=== PATIENT | male | born 1945 | race African-American/Black ===

== ENCOUNTER 2016-11-01 06:48 | Inpatient (IN) | payer OTHER, MEDICARE ==
[~2016-11-01] VITALS: Ht 188 cm; Wt 77.5 kg
[2016-11-01] VITALS (14 sets, daily range): BP systolic 102–187; BP diastolic 53–92; PULSE 48–55; RESP 17–20; TEMP 95.3–97.9; O2SAT 95–99
[~2016-11-01 06:48] MED LIST: AMLO5TAB22 PO; B12-1CHW CHEW; CALC667T PO; CHOL50006 PO; CITA-48 PO; DOXA1 PO; LASI80TA PO; LISI-363 PO; METO50TA PO; SIMV20 PO
--- NOTE | 2016-11-01 07:12 | PD ---
HPI . weakness Chief Complaint: General Weakness Time Seen by Provider: 07:00 Travel History International Travel<30 days: No Contact w/Intl Traveler<30days: No Traveled to known affect area: No History of Present Illness HPI Patient presents with chief complaint of weakness. He reports that he has been feeling poorly for about the last week or so. It has been acutely worse for the last 2 days. He has end-stage renal disease on dialysis. He went to dialysis this morning and they suggested that he come here for evaluation. Patient admits to a couple of syncopal episodes at home. He states that he feels very weak and fatigued. He is short of breath and has dyspnea on exertion. He reports taking aspirin for shoulder pain and is now passing blood per rectum. He states that he passed 3 large grossly positive stools yesterday. Patient was seen here in the recent past for hypoglycemia. He has had a very poor appetite and weight loss and has been having trouble maintaining his blood sugars. PFSH Past Medical History Arthritis: No Asthma: Yes Blood Disorders: No Anxiety: No Depression: No Heart Rhythm Problems: No Cancer: No Cardiovascular Problems: Yes (HTN) High Cholesterol: Yes Chemotherapy: No Chest Pain: No Congestive Heart Failure: Yes COPD: Yes Cerebrovascular Accident: No Diabetes: Yes Dialysis: Yes (hemo on m,w,f) Diminished Hearing: No Endocrine: Yes Gastrointestinal Disorders: Yes GERD: No Genitourinary: Yes Headaches: No Hepatitis: No Hiatal Hernia: No Hypertension: Yes Immune Disorder: No Implanted Vascular Access Dvce: No Kidney Stones: No Musculoskeletal: No Neurologic: No Psychiatric: No Reproductive: No Respiratory: Yes Migraines: No Radiation Therapy: No Renal Failure: Yes Seizures: No Sickle Cell Disease: No Sleep Apnea: No Thyroid Disease: No Ulcer: No ?: Not Past Surgical History AICD: No Arteriovenous Shunt: Yes Cardiac Surgery: No Ear Surgery: No Endocrine Surgery: No Eye Surgery: No Genitourinary Surgery: No Gynecologic Surgery: No Insulin Pump: No Joint Replacement: No Neurologic Surgery: No Oral Surgery: No Pacemaker: No Thoracic Surgery: No Other Surgery: Yes (fistula L arm) Social History Alcohol Use: No Tobacco Use: No Substance Use: No Allergies-Medications (Allergen,Severity, Reaction): Coded Allergies: No Known Allergies (Verified , 11/01/16) Reported Meds & Prescriptions Reported Meds & Active Scripts Active Review of Systems Except as stated in HPI: all other systems reviewed are Neg General / Constitutional: Positive: Weight Loss, Other (weakness and fatigue), No: Fever, Chills HENT: Positive: Lightheadedness Cardiovascular: Positive: Syncope, No: Chest Pain or Discomfort, Diaphoresis, Edema Respiratory: Positive: Shortness of Breath Gastrointestinal: Positive: Hematochezia, Loss of Appetite Neurologic: Positive: Weakness, Dizziness, Syncope Physical Exam Narrative GENERAL: Patient is lying on the stretcher with his eyes closed most the time. He does respond to verbal stimuli. He is very pale. SKIN: Warm and dry. HEAD: Atraumatic. Normocephalic. EYES: Pupils equal and round. Conjunctiva pale. ENT: No nasal bleeding or discharge. Mucous membranes pale and moist. NECK: Trachea midline. Neck is supple. No cervical lymphadenopathy. CARDIOVASCULAR: Regular rate and rhythm. Normal heart sounds. RESPIRATORY: No accessory muscle use. Breath sounds full and equal. GASTROINTESTINAL: Abdomen soft, non-tender, nondistended. MUSCULOSKELETAL: No obvious deformities. No edema. NEUROLOGICAL: Awake and alert. No obvious cranial nerve deficits. Motor grossly within normal limits. Normal speech. PSYCHIATRIC: Appropriate mood and affect; insight and judgment normal. Data Data Last Documented VS Vital Signs Date Time Temp Pulse Resp B/P Pulse Ox O2 Delivery O2 Flow Rate FiO2 11/01/16 07:00 48 18 97 Room Air 11/01/16 07:00 97.8 114/55 Orders Electrocardiogram (11/01/16 07:01) Complete Blood Count With Diff (11/01/16 07:01) Comprehensive Metabolic Panel (11/01/16 07:01) Magnesium (Mg) (11/01/16 07:01) Ckmb (Isoenzyme) Profile (11/01/16 07:01) Troponin I (11/01/16 07:01) Prothrombin Time / Inr (Pt) (11/01/16 07:01) Urinalysis - C+S If Indicated (11/01/16 07:01) Ecg Monitoring (11/01/16 07:01) Iv Access Insert/Monitor (11/01/16 07:01) Oximetry (11/01/16 07:01) Sodium Chloride 0.9% Flush (Ns Flush) (11/01/16 07:15) Type And Screen (11/01/16 07:11) CKMB (11/01/16 07:20) CKMB% (11/01/16 07:20) Labs Laboratory Tests Test 11/01/16 07:20 White Blood Count 4.5 TH/MM3 Red Blood Count 2.60 MIL/MM3 Hemoglobin 7.5 GM/DL Hematocrit 21.8 % Mean Corpuscular Volume 83.6 FL Mean Corpuscular Hemoglobin 29.0 PG Mean Corpuscular Hemoglobin 34.6 % Concent Red Cell Distribution Width 19.9 % Platelet Count 178 TH/MM3 Mean Platelet Volume 7.8 FL Neutrophils (%) (Auto) 83.1 % Lymphocytes (%) (Auto) 9.1 % Monocytes (%) (Auto) 6.9 % Eosinophils (%) (Auto) 0.3 % Basophils (%) (Auto) 0.6 % Neutrophils # (Auto) 3.7 TH/MM3 Lymphocytes # (Auto) 0.4 TH/MM3 Monocytes # (Auto) 0.3 TH/MM3 Eosinophils # (Auto) 0.0 TH/MM3 Basophils # (Auto) 0.0 TH/MM3 CBC Comment DIFF FINAL Differential Comment Prothrombin Time 11.5 SEC Prothromb Time International 1.0 RATIO Ratio Sodium Level 137 MEQ/L Potassium Level 4.8 MEQ/L Chloride Level 97 MEQ/L Carbon Dioxide Level 24.9 MEQ/L Anion Gap 15 MEQ/L Blood Urea Nitrogen 77 MG/DL Creatinine 11.97 MG/DL Estimat Glomerular Filtration 5 ML/MIN Rate Random Glucose 191 MG/DL Calcium Level 8.8 MG/DL Magnesium Level 2.1 MG/DL Total Bilirubin 0.3 MG/DL Aspartate Amino Transf 6 U/L (AST/SGOT) Alanine Aminotransferase 12 U/L (ALT/SGPT) Alkaline Phosphatase 51 U/L Total Creatine Kinase 153 U/L Creatine Kinase MB 4.9 NG/ML Troponin I 0.05 NG/ML Total Protein 6.8 GM/DL Albumin 3.2 GM/DL Blood Type O POSITIVE MDM Medical Decision Making Medical Screen Exam Complete: Yes Emergency Medical Condition: Yes Medical Record Reviewed: Yes Interpretation(s) EKG shows a sinus bradycardia and right bundle branch block Differential Diagnosis Differential diagnosis of weakness includes but is not limited to infection, CVA , electrolyte disturbance, renal failure, hypoglycemia, UTI, ACS, anemia Narrative Course This is a renal failure patient who presents with generalized weakness area. He reports a GI bleed which started yesterday. He reports several episodes of syncope. On exam, he is very pale. 8:18 AM His H&H is 7.5 and 21.8. White blood count is 4.5. INR is 1.0. Potassium is 4.8. Glucose is 191. The patient needs to be admitted for further evaluation of rectal bleeding with resultant anemia. HemaPrompt Point of Care Fecal Specimen Occult Blood: Positive (stool is grossly positive for blood. I do not see a hemorrhoid.) Diagnosis Primary Impression: Anemia Qualified Code: D64.9 - Anemia, unspecified type Additional Impressions: End stage renal disease on dialysis DM (diabetes mellitus) Qualified Code: E11.22 - Type 2 diabetes mellitus with chronic kidney disease on chronic dialysis, without long-term current use of insulin Rectal bleeding Admitting Information Admitting Physician Requests: Admit Condition: Stable Padmini Newberry MD Nov 01, 2016 07:12
[2016-11-01] MEDS ORDERED: SODIUM CHLORIDE 0.9% FLUSH 5 ML FLUSH IVF PRN ×2 (07:15→15:30)
[2016-11-01 07:44] LABS: AUTOMATED NEUTROPHIL # 3.7 TH/MM3 (1.8-7.7); BASOPHIL % 0.6 % (0.0-2.0); EOSINOPHIL % 0.3 % (0.0-4.0); HEMATOCRIT 21.8 % (39.0-51.0); HEMO FLAGS DIFF FINAL; LYMPH % 9.1 % (9.0-44.0); LYMPHOCYTE # 0.4 TH/MM3 (1.0-4.8); MEAN CELL VOLUME 83.6 FL (80.0-100.0); MEAN CORPUSCULAR HGB CONC 34.6 % (32.0-36.0); MONO % 6.9 % (0.0-8.0); NEUT % 83.1 % (16.0-70.0); PLATELET COUNT 178 TH/MM3 (150-450); RED CELL DISTRIBUTION WIDTH 19.9 % (11.6-17.2); WHITE BLOOD COUNT 4.5 TH/MM3 (4.0-11.0)
[2016-11-01 07:48] LABS: PROTHROMBIN TIME - PATIENT 11.5 SEC (9.8-11.6)
[2016-11-01 07:55] LABS: ANION GAP 15 MEQ/L (5-15)
[2016-11-01 08:00] LABS: ALKALINE PHOSPHATASE 51 U/L (45-117); ALT (GPT) 12 U/L (12-78); AST (GOT) 6 U/L (15-37); BICARBONATE 24.9 MEQ/L (21.0-32.0); BLOOD UREA NITROGEN 77 MG/DL (7-18); CHLORIDE 97 MEQ/L (98-107); CREATINE KINASE 153 U/L (39-308); GLOMERULAR FILTRATION RATE 5 ML/MIN (>89); MAGNESIUM 2.1 MG/DL (1.5-2.5); POTASSIUM 4.8 MEQ/L (3.5-5.1); SODIUM (NA) 137 MEQ/L (136-145); TOTAL BILIRUBIN ADULT 0.3 MG/DL (0.2-1.0)
[2016-11-01 08:14] LABS: CKMB 4.9 NG/ML (0.5-3.6)
[2016-11-01] MEDS ORDERED: LISI-515 PO (09:02)
[2016-11-01] MEDS ORDERED: AMLO5 PO (09:02)
[2016-11-01] MEDS ORDERED: D-50TAB PO (09:02)
[2016-11-01] MEDS ORDERED: FURO1TAB61 PO (09:02)
[2016-11-01] MEDS ORDERED: ZOCO20TA PO (09:02)
[2016-11-01] MEDS ORDERED: PHOS667C5 PO (09:02)
[2016-11-01] MEDS ORDERED: D 50CAP (09:02)
[2016-11-01] MEDS ORDERED: METO50TA PO (09:02)
[2016-11-01] MEDS ORDERED: DOXA4TAB3 PO (09:02)
[2016-11-01] MEDS ORDERED: BISACODYL 10 MG SUPP PR PRN (09:30)
[2016-11-01] MEDS ORDERED: SENNOSIDES 8.6 MG TAB PO PRN (09:30)
[2016-11-01] MEDS ORDERED: PROCHLORPERAZINE 25 MG SUPP PR PRN (09:30)
[2016-11-01] MEDS ORDERED: diphenhydrAMINE HCL 25 MG CAP PO ONE (09:30)
[2016-11-01] MEDS ORDERED: ACETAMINOPHEN 325 MG TAB PO ONE (09:30)
[2016-11-01] MEDS ORDERED: ONDANSETRON HCL 4 MG/2 ML VIAL IVP PRN (09:30)
[2016-11-01] MEDS ORDERED: SODIUM CHLORIDE 0.9% FLUSH 5 ML FLUSH FLUSH PRN (09:30)
[2016-11-01] MEDS ORDERED: SODIUM CHLOR 0.9% 250 ML INJ 250 ML IV ONE (09:30)
[2016-11-01] MEDS ORDERED: ACETAMINOPHEN 325 MG TAB PO PRN ×2 (09:30→15:30)
--- NOTE | 2016-11-01 09:33 | HHI.HP ---
[facility] Service [facility] Primary Care Physician Ena Klein Admission Diagnosis Diagnoses: Chief Complaint: weakness Travel History International Travel<30 Days: No Contact w/Intl Traveler <30 Da: No Traveled to Known Affected Are: No History of Present Illness Patient is a 71 yo male, with PMH of EDRD, HTN, DM presents with chief complaint of weakness. He reports that he has been feeling poorly for about the last week or so. It has been acutely worse for the last 2 days. He has end -stage renal disease on dialysis. He went to dialysis this morning and they suggested that he come here for evaluation. Patient admits to a couple of syncopal episodes at home. He states that he feels very weak and fatigued. He is short of breath and has dyspnea on exertion. He reports taking aspirin for shoulder pain and is now passing blood per rectum. He states that he passed 3 large grossly positive stools yesterday. Patient was seen here in the recent past for hypoglycemia. He has had a very poor appetite and weight loss and has been having trouble maintaining his blood sugars. Review of Systems Constitutional: DENIES: Fever, Chills, Change in appetite Endocrine: DENIES: Heat/cold intolerance Eyes: DENIES: Blurred vision, Eye pain Ears, nose, mouth, throat: DENIES: Tinnitus, Hearing loss, Vertigo, Nasal discharge, Oral lesions, Throat pain, Hoarseness, Ear Pain, Running Nose, Epistaxis, Sinus Pain, Toothache, Odynophagia Respiratory: DENIES: Apneas, Cough, Snoring, Wheezing, Hemoptysis, Sputum production, Shortness of breath Cardiovascular: DENIES: Chest pain, Palpitations, Syncope, Dyspnea on Exertion , PND, Lower Extremity Edema, Orthopnea, Claudication Gastrointestinal: DENIES: Abdominal pain, Black stools, Bloody stools, Constipation, Diarrhea, Nausea, Vomiting, Difficulty Swallowing, Anorexia Genitourinary: DENIES: Sexual dysfunction, Urinary frequency, Urinary incontinence, Urgency, Hematuria, Dysuria, Nocturia, Penile Discharge, Testicular Pain, Testicular Swelling Musculoskeletal: COMPLAINS OF: Joint pain Integumentary: DENIES: Rash Neurologic: DENIES: Abnormal gait, Headache, Localized weakness, Paresthesias, Seizures, Speech Problems, Tremor, Poor Balance Psychiatric: DENIES: Anxiety, Depression Past Family Social History Past Medical History ESRD on HD Hypertension COPD, diagnosed on recent PFTs Borderline diabetic in the past, s/p intentional 40 pound weight loss Past Surgical History Peritoneal dialysis catheter placement and removal; AV fistula placement Reported Medications Reported Meds & Active Scripts Active Reported Metoprolol Tartrate 50 Mg Tab 50 Mg PO DAILY Lasix (Furosemide) 80 Mg Tab 80 Mg PO DAILY Lisinopril 20 Mg Tab 20 Mg PO DAILY Zocor (Simvastatin) 20 Mg Tab 20 Mg PO HS Doxazosin (Doxazosin Mesylate) 4 Mg Tab 4 Mg PO DAILY D-5000 (Cholecalciferol) 5,000 Unit Tab Tab PO DAILY D 5000 (Cholecalciferol) 5,000 Unit Cap Phoslo (Calcium Acetate (Phosphate Binder)) 667 Mg Cap 1,334 Mg PO TID Norvasc (Amlodipine Besylate) 5 Mg Tab 5 Mg PO DAILY Allergies: Coded Allergies: No Known Allergies (Verified , 11/01/16) Family History Mother and grandmother with DM and kidney failure Social History Denies EtOH, tobacco use, illicit drug use. Physical Exam Vital Signs Vital Signs Date Time Temp Pulse Resp B/P Pulse Ox O2 Delivery O2 Flow Rate FiO2 11/01/16 09:00 48 18 131/53 98 Room Air 11/01/16 07:00 48 18 97 Room Air 11/01/16 07:00 18 97 Room Air 11/01/16 07:00 97.8 48 18 114/55 97 Room Air 11/01/16 06:50 97.9 53 18 114/55 Physical Exam GENERAL: This is a well-nourished, well-developed patient, in no apparent distress. SKIN: No rashes, ecchymoses or lesions. Cool and dry. HEAD: Atraumatic. Normocephalic. No temporal or scalp tenderness. EYES: Pupils equal round and reactive. Extraocular motions intact. No scleral icterus. No injection or drainage. ENT: Nose without bleeding, purulent drainage or septal hematoma. Throat without erythema, tonsillar hypertrophy or exudate. Uvula midline. Airway patent. NECK: Trachea midline. No JVD or lymphadenopathy. Supple, nontender, no meningeal signs. CARDIOVASCULAR: Regular rate and rhythm without murmurs, gallops, or rubs. RESPIRATORY: Clear to auscultation. Breath sounds equal bilaterally. No wheezes , rales, or rhonchi. GASTROINTESTINAL: Abdomen soft, non-tender, nondistended. No hepato-splenomegaly , or palpable masses. No guarding. MUSCULOSKELETAL: Extremities without clubbing, cyanosis, or edema. No joint tenderness, effusion, or edema noted. No calf tenderness. Negative Homans sign bilaterally. NEUROLOGICAL: Awake and alert. Cranial nerves II through XII intact. Motor and sensory grossly within normal limits. Five out of 5 muscle strength in all muscle groups. Normal speech. Laboratory Laboratory Tests Test 11/01/16 07:20 White Blood Count 4.5 Red Blood Count 2.60 Hemoglobin 7.5 Hematocrit 21.8 Mean Corpuscular Volume 83.6 Mean Corpuscular Hemoglobin 29.0 Mean Corpuscular Hemoglobin 34.6 Concent Red Cell Distribution Width 19.9 Platelet Count 178 Mean Platelet Volume 7.8 Neutrophils (%) (Auto) 83.1 Lymphocytes (%) (Auto) 9.1 Monocytes (%) (Auto) 6.9 Eosinophils (%) (Auto) 0.3 Basophils (%) (Auto) 0.6 Neutrophils # (Auto) 3.7 Lymphocytes # (Auto) 0.4 Monocytes # (Auto) 0.3 Eosinophils # (Auto) 0.0 Basophils # (Auto) 0.0 CBC Comment DIFF FINAL Differential Comment Prothrombin Time 11.5 Prothromb Time International 1.0 Ratio Sodium Level 137 Potassium Level 4.8 Chloride Level 97 Carbon Dioxide Level 24.9 Anion Gap 15 Blood Urea Nitrogen 77 Creatinine 11.97 Estimat Glomerular Filtration 5 Rate Random Glucose 191 Calcium Level 8.8 Magnesium Level 2.1 Total Bilirubin 0.3 Aspartate Amino Transf 6 (AST/SGOT) Alanine Aminotransferase 12 (ALT/SGPT) Alkaline Phosphatase 51 Total Creatine Kinase 153 Creatine Kinase MB 4.9 Troponin I 0.05 Total Protein 6.8 Albumin 3.2 Blood Type O POSITIVE Antibody Screen NEGATIVE Result Diagram: 11/01/1671911/01/16719 Assessment and Plan Assessment and Plan 70-year-old male with past medical history of ESRD on HD, COPD, and HTN presents with a 2 day history of no energy and shortness of breath GIB /rectal bleeding with symptomatic anemia: Type and cross, transfuse 2 U PRBC today. Monitor H/H q6 hrs. On Pantoprazole 40 mg IV bid. Consult GI specialist. Patient says says he is using more NSAIDs for pain lately. Pain meds per pain scale. Avoids NSAIDs Generalized weakness/physical deconditioning. Consult PT/OT ESRD on HD: Stable, no evidence of fluid overload. Nephrology consultation recommendations. Hypertension: Currently controlled. Continue patient's home BP medication regimen. Continue to monitor and adjust medications as needed. Diabetes mellitus type 2: Accuchecks, ISS COPD duonebs as need Chronic shoulder pain. Patient says says he is using more NSAIDs for pain lately. Pain meds per pain scale. Avoids NSAIDs Consult CM for DC plan DVT prophylaxis: SCDs, chemical ppx CI 2/2/ active bleeding Code Status full Discussed Condition With ER physician Physician Certification 2 Midnight Certification Type: Admission for Inpatient Services Order for Inpatient Services The services are ordered in accordance with Medicare regulations or non- Medicare payer requirements, as applicable. In the case of services not specified as inpatient-only, they are appropriately provided as inpatient services in accordance with the 2-midnight benchmark. Estimated LOS (days): 3 days is the estimated time the patient will need to remain in the hospital, assuming treatment plan goals are met and no additional complications. Post-Hospital Plan: Not yet determined Sarah Landrum MD Nov 01, 2016 09:33
[2016-11-01] MEDS: PANTOPRAZOLE SODIUM 40 MG VIAL IV PUSH SCH ×2 (09:57→20:50)
[2016-11-01] MEDS: CALCIUM ACETATE 667 MG CAP PO SCH ×2 (13:13→17:49)
--- NOTE | 2016-11-01 14:14 | EKG ---
Date Performed: 11/01/2016 Time Performed: 07:35:56 PTAGE: 71 years EKG: SINUS BRADYCARDIA RIGHT BUNDLE BRANCH BLOCK Compared to previous tracing, right bundle bran ch block is now present. ABNORMAL ECG PREVIOUS TRACING : 04/15/2016 20.20 DOCTOR: Elmer Ortiz Interpretating Date/Time 11/01/2016 14:12:44
[2016-11-01] MEDS ORDERED: SODIUM CHLOR 0.9% 1000 ML INJ 1,000 ML IV PRN ×3 (15:24→16:00)
[2016-11-01] MEDS ORDERED: GELATIN 12 MM/7 MM FOAM TOP PRN (15:30)
[2016-11-01] MEDS ORDERED: ONDANSETRON HCL 4 MG/2 ML VIAL IV PRN (15:30)
[2016-11-01] MEDS ORDERED: cloNIDine HCL 0.1 MG TAB PO PRN ×2 (15:30)
[2016-11-01] MEDS ORDERED: NITROGLYCERIN 0.4 MG SL 25 TABS/BTL SL PRN (15:30)
[2016-11-01] MEDS ORDERED: diphenhydrAMINE HCL 25 MG CAP PO PRN (15:30)
[2016-11-01] MEDS ORDERED: MANNITOL 12.5 GM/50 ML VIAL IV PRN (15:30)
[2016-11-01] MEDS ORDERED: ALBUMIN HUMAN 25% 25 GM/100 ML BAGP IV PRN (15:30)
[2016-11-01] MEDS ORDERED: EPOETIN ALFA 10,000 UNITS/ML VIAL IV PRN (15:30)
--- NOTE | 2016-11-01 15:47 | PD.CONS ---
HPI Service Nephrology Consult Requested By Dr. Landrum Reason for Consult ESRD on HD MWF Primary Care Physician Ena Klein History of Present Illness The patient is a 71 yo AA male who presented to this facility today at the urge of his dialysis nurse as he has been progressively weak and noted BRB DE with BMs. He did not have his regularly scheduled HD today. Says that he has had 2 previous episodes of rectal bleeding in the past that has been attributed to ASA use. He admits that he has been using large doses of Aspirin recently for L shoulder pain. Denies chest pain, abdominal pain, or SOB. (Gillian Figueroa) Review of Systems Constitutional: COMPLAINS OF: Fatigue, Dizziness Gastrointestinal: COMPLAINS OF: Bloody stools (Gillian Figueroa) Past Family Social History Allergies: Coded Allergies: No Known Allergies (Verified , 11/01/16) Past Medical History ESRD on HD Hypertension COPD CHF HLD Previous GI bleeding from ASA usage DM that is now diet controlled. Previously on oral medications, but stopped in 2013 as he intentionally lost ~80 lbs. Past Surgical History Hernia repair LUE AVF Reported Medications Active Reported Metoprolol Tartrate 50 Mg Tab 50 Mg PO DAILY Lasix (Furosemide) 80 Mg Tab 80 Mg PO DAILY Lisinopril 20 Mg Tab 20 Mg PO DAILY Zocor (Simvastatin) 20 Mg Tab 20 Mg PO HS Doxazosin (Doxazosin Mesylate) 4 Mg Tab 4 Mg PO DAILY D-5000 (Cholecalciferol) 5,000 Unit Tab Tab PO DAILY Phoslo (Calcium Acetate (Phosphate Binder)) 667 Mg Cap 1,334 Mg PO TID Norvasc (Amlodipine Besylate) 5 Mg Tab 5 Mg PO DAILY Active Ordered Medications Current Medications Medications (Trade) Dose Ordered Sig/Luis Route Start Time Stop Time Status Last Admin (NS 250 ml Inj) 250 ml @ 15 mls/hr ONCE ONCE IV 11/01/16 09:30 11/02/16 02:09 11/01/16 11:44 (NS Flush) 2 ml UNSCH PRN FLUSH 11/01/16 09:30 (NS Flush) 2 ml BID FLUSH 11/01/16 21:00 (Tylenol) 650 mg Q4H PRN PO 11/01/16 09:30 (Zofran Inj) 4 mg Q6H PRN IVP 11/01/16 09:30 (Compazine Supp) 25 mg Q12H PRN DE 11/01/16 09:30 (Dulcolax Supp) 10 mg DAILY PRN DE 11/01/16 09:30 (Senokot) 17.2 mg Q12H PRN PO 11/01/16 09:30 (Protonix Inj) 40 mg Q12H IV PUSH 11/01/16 10:00 11/01/16 09:57 (Phoslo) 1,334 mg TID PO 11/01/16 13:00 11/01/16 13:13 (Cardura) 4 mg DAILY PO 11/02/16 09:00 (Prinivil) 20 mg DAILY PO 11/02/16 09:00 (Pravachol) 40 mg HS PO 11/01/16 21:00 (Lopressor) 25 mg Q12HR PO 11/01/16 21:00 (Norvasc) 5 mg BID PO 11/01/16 21:00 Clonidine 0.1 mg 0.1 mg Q6H PRN PO 11/01/16 15:30 Sodium Chloride 1,000 ml @ 0 mls/hr Q0M PRN IV 11/01/16 15:24 Sodium Chloride 1,000 ml @ 200 mls/hr Q5H PRN IV 11/01/16 15:24 UNV (NS 1000 ml Inj) 1,000 ml @ 0 mls/hr Q0M PRN IV 11/01/16 15:24 UNV (Mannitol Inj) 12.5 gm UNSCH PRN IV 11/01/16 15:30 UNV (Albumin 25% Inj) 25 gm UNSCH PRN IV 11/01/16 15:30 UNV (NS Flush) 5 ml UNSCH PRN IVF 11/01/16 15:30 UNV (Zofran Inj) 4 mg UNSCH PRN IV 11/01/16 15:30 UNV (Tylenol) 650 mg UNSCH PRN PO 11/01/16 15:30 UNV (Benadryl) 25 mg UNSCH PRN PO 11/01/16 15:30 UNV (Nitrostat Sl) 0.4 mg UNSCH PRN SL 11/01/16 15:30 UNV (Catapres) 0.1 mg UNSCH PRN PO 11/01/16 15:30 UNV (Epogen Inj) 10,000 units UNSCH PRN IV 11/01/16 15:30 UNV (Gelfoam 12 Mm/7 Mm Top) 1 foam UNSCH PRN TOP 11/01/16 15:30 UNV Family History Sister with ESRD that was on HD Social History Denies tobacco use Denies ETOH or illicit drug use , 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) Physical Exam Vital Signs Vital Signs Date Time Temp Pulse Resp B/P Pulse Ox O2 Delivery O2 Flow Rate FiO2 11/01/16 14:56 95.6 55 20 187/83 97 11/01/16 14:00 95.3 55 20 174/77 96 11/01/16 13:48 97.8 50 17 102/59 98 Room Air 11/01/16 11:58 49 18 126/58 99 Room Air 11/01/16 10:45 97.9 49 18 121/60 99 Room Air 11/01/16 10:30 97.8 50 18 118/58 99 Room Air 11/01/16 10:05 95 21 11/01/16 09:00 48 18 131/53 98 Room Air 11/01/16 07:00 48 18 97 Room Air 11/01/16 07:00 18 97 Room Air 11/01/16 07:00 97.8 48 18 114/55 97 Room Air 11/01/16 06:50 97.9 53 18 114/55 Physical Exam GENERAL: NAD SKIN: Warm and dry. HEAD: Atraumatic. Normocephalic. EYES: Pupils equal and round. No scleral icterus. No injection or drainage. ENT: No nasal bleeding or discharge. Mucous membranes pink and moist. NECK: Trachea midline. No JVD. CARDIOVASCULAR: Regular rate and rhythm. RESPIRATORY: No accessory muscle use. Clear to auscultation. Breath sounds equal bilaterally. GASTROINTESTINAL: Abdomen soft, non-tender, nondistended. Hepatic and splenic margins not palpable. MUSCULOSKELETAL: Extremities without clubbing, cyanosis, or edema. No obvious deformities. NEUROLOGICAL: Awake and alert. No obvious cranial nerve deficits. Normal speech. PSYCHIATRIC: Appropriate mood and affect; insight and judgment normal. Laboratory Laboratory Tests Test 11/01/16 11/01/16 07:20 09:23 White Blood Count 4.5 Red Blood Count 2.60 Hemoglobin 7.5 Hematocrit 21.8 Mean Corpuscular Volume 83.6 Mean Corpuscular Hemoglobin 29.0 Mean Corpuscular Hemoglobin 34.6 Concent Red Cell Distribution Width 19.9 Platelet Count 178 Mean Platelet Volume 7.8 Neutrophils (%) (Auto) 83.1 Lymphocytes (%) (Auto) 9.1 Monocytes (%) (Auto) 6.9 Eosinophils (%) (Auto) 0.3 Basophils (%) (Auto) 0.6 Neutrophils # (Auto) 3.7 Lymphocytes # (Auto) 0.4 Monocytes # (Auto) 0.3 Eosinophils # (Auto) 0.0 Basophils # (Auto) 0.0 CBC Comment DIFF FINAL Differential Comment Prothrombin Time 11.5 Prothromb Time International 1.0 Ratio Sodium Level 137 Potassium Level 4.8 Chloride Level 97 Carbon Dioxide Level 24.9 Anion Gap 15 Blood Urea Nitrogen 77 Creatinine 11.97 Estimat Glomerular Filtration 5 Rate Random Glucose 191 Calcium Level 8.8 Magnesium Level 2.1 Total Bilirubin 0.3 Aspartate Amino Transf 6 (AST/SGOT) Alanine Aminotransferase 12 (ALT/SGPT) Alkaline Phosphatase 51 Total Creatine Kinase 153 Creatine Kinase MB 4.9 Troponin I 0.05 Total Protein 6.8 Albumin 3.2 Blood Type O POSITIVE O POSITIVE Antibody Screen NEGATIVE Crossmatch Leukocyte-Reduced Red Blood Cells Blood Bank Comment (Gillian Figueroa) Result Diagram: 11/01/16 0720 11/01/16 0720 Assessment and Plan Problem List: (1) End stage renal disease on dialysis Plan: Missed HD today, but no urgent need for session. Planned HD tomorrow as discussed with dialysis nurse. To resume MWF thereafter. Check PO4 levels, iPTH, Vit D Continue on PhosLo as per outpatient dose. Medications should be adjusted for ESRD. Avoid gadolinium. (2) HTN (hypertension) Plan: Continue on home medication regimen (3) Anemia Plan: Known GI bleed. GI has been consulted. Did discuss with the patient about excessive ASA use as he is at high risk of UGI bleeding with NSAIDs as a dialysis patient. Would recommend outpatient evaluation with an orthopedist to see if anything can be done about continued L shoulder pain. (Gillian Figueroa) Assessment and Plan The exam, history, and the medical decision-making described in the above note were completed with the assistance of the SANDEEP. I reviewed and agree with the findings presented. I attest that I had a [id number] encounter with the patient on the same day, and personally performed and documented my assessment and findings in the medical record. (Marilyn Brito MD) Problem Qualifiers (1) Anemia: Qualified Code: D64.9 - Anemia, unspecified type Gillian Figueroa Nov 01, 2016 15:47 Marilyn Brito MD Nov 01, 2016 16:07
[2016-11-01] MEDS ORDERED: RESP: ALBUTEROL 2.5 MG/IPRATROPIUM 0.5 MG NEB (PRN) NEB (16:00)
[2016-11-01] MEDS ORDERED: MORPHINE SULFATE 4 MG/ML INJ IV PRN (17:00)
[2016-11-01] MEDS ORDERED: NALOXONE HCL 0.4 MG/ML AMP IV PRN (17:00)
[2016-11-01] MEDS ORDERED: ACETAMINOPHEN/HYDROcodone 325 MG/5 MG TAB PO PRN (17:00)
[2016-11-01] MEDS: PRAVASTATIN SOD 40 MG TAB PO SCH (20:50)
[2016-11-01] MEDS: amLODIPine BESYLATE 5 MG TAB PO SCH (20:50)
[2016-11-01] MEDS: SODIUM CHLORIDE 0.9% FLUSH 5 ML FLUSH FLUSH SCH (20:50)
[2016-11-01] MEDS: METOPROLOL TARTRATE 25 MG TAB PO SCH (20:50)
[2016-11-01 21:55] LABS: BLOOD, URINE TRACE (NEG); COMMENT (UR) CULT NOT INDICATED; CULTURE IF INDICATED CULT NOT INDICATED; GLUCOSE,URINE TRACE mg/dL (NEG); KETONE, URINE NEG (NEG); NITRITE,URINE NEG (NEG); SQUAMOUS EPITHELIAL CELL URINE 1 /hpf (0-5); URINE COLOR LIGHT-YELLOW (YELLW/STRAW)
[2016-11-02] VITALS (10 sets, daily range): BP systolic 90–152; BP diastolic 51–114; PULSE 54–76; RESP 16–20; TEMP 95.6–98.1; O2SAT 91–98
[2016-11-02 03:24] LABS: AUTOMATED NEUTROPHIL # 4.2 TH/MM3 (1.8-7.7); BASOPHIL % 0.5 % (0.0-2.0); EOSINOPHIL # 0.1 TH/MM3 (0-0.4); EOSINOPHIL % 1.1 % (0.0-4.0); LYMPH % 8.8 % (9.0-44.0); LYMPHOCYTE # 0.4 TH/MM3 (1.0-4.8); MEAN CELL VOLUME 83.8 FL (80.0-100.0); MEAN CORPUSCULAR HEMOGLOBIN 28.3 PG (27.0-34.0); MEAN CORPUSCULAR HGB CONC 33.8 % (32.0-36.0); MONO % 8.6 % (0.0-8.0); PLATELET COUNT 134 TH/MM3 (150-450); RED BLOOD COUNT 2.05 MIL/MM3 (4.50-5.90); RED CELL DISTRIBUTION WIDTH 18.7 % (11.6-17.2); WHITE BLOOD COUNT 5.1 TH/MM3 (4.0-11.0)
[2016-11-02 03:26] LABS: HEMO FLAGS DIFF FINAL
[2016-11-02 03:34] LABS: HEMATOCRIT 17.2 % (39.0-51.0)
[2016-11-02 04:00] LABS: ANION GAP 15 MEQ/L (5-15); BICARBONATE 22.2 MEQ/L (21.0-32.0); BLOOD UREA NITROGEN 90 MG/DL (7-18); CHLORIDE 104 MEQ/L (98-107); GLOMERULAR FILTRATION RATE 5 ML/MIN (>89); POTASSIUM 5.1 MEQ/L (3.5-5.1); SODIUM (NA) 141 MEQ/L (136-145); TRANSFERRIN IRON PROFILE 119 MG/DL (200-360)
[2016-11-02] MEDS ORDERED: FUROSEMIDE 20 MG/2 ML VIAL IV SCH (04:15)
[2016-11-02] MEDS ORDERED: diphenhydrAMINE HCL 25 MG CAP PO PRN (04:15)
[2016-11-02] MEDS ORDERED: ACETAMINOPHEN 325 MG TAB PO PRN (04:15)
[2016-11-02] MEDS ORDERED: SODIUM CHLOR 0.9% 250 ML INJ 250 ML IV ONE (04:15)
[2016-11-02] MEDS: ACETAMINOPHEN/HYDROcodone 325 MG/10 MG TAB PO PRN ×2 (05:04→17:10)
[2016-11-02] MEDS: amLODIPine BESYLATE 5 MG TAB PO SCH ×2 (07:52→19:39)
[2016-11-02] MEDS: METOPROLOL TARTRATE 25 MG TAB PO SCH ×2 (07:52→19:39)
[2016-11-02] MEDS: LISINOPRIL 20 MG TAB PO SCH (07:53)
[2016-11-02] MEDS: CALCIUM ACETATE 667 MG CAP PO SCH ×3 (07:53→16:45)
[2016-11-02] MEDS: PANTOPRAZOLE SODIUM 40 MG VIAL IV PUSH SCH ×2 (07:55→19:41)
[2016-11-02] MEDS: SODIUM CHLORIDE 0.9% FLUSH 5 ML FLUSH FLUSH SCH ×2 (07:59→19:38)
[2016-11-02] MEDS: DOXAZOSIN MESYLATE 4 MG TAB PO SCH (07:59)
[2016-11-02] MEDS ORDERED: amLODIPine BESYLATE 5 MG TAB PO SCH (09:00)
--- NOTE | 2016-11-02 11:52 | HHI.PR ---
Subjective Remarks With significant drop in hgb, transfuse. Patient still with sob and severe weakness. He did have 3 bloody BM last night. No fever or chills. No chest pain, n/v. Denies fever or chills. He has pain in his joints, chronic pain, controlled by meds. Objective Vitals Vital Signs Date Time Temp Pulse Resp B/P Pulse Ox O2 Delivery O2 Flow Rate FiO2 11/02/16 08:00 97.6 57 18 105/61 95 11/02/16 04:00 95.6 54 18 90/51 98 11/02/16 00:00 97.2 55 18 130/68 98 11/01/16 20:24 54 11/01/16 20:00 96.8 55 18 158/78 95 11/01/16 15:15 97.0 54 18 168/92 11/01/16 15:00 97.6 54 167/78 11/01/16 14:56 95.6 55 20 187/83 97 11/01/16 14:00 95.3 55 20 174/77 96 11/01/16 13:48 97.8 50 17 102/59 98 Room Air 11/01/16 11:58 49 18 126/58 99 Room Air I/O 11/01/16 11/01/16 11/01/16 11/02/16 11/02/16 11/02/16 06:59 14:59 22:59 06:59 14:59 22:59 Intake Total 700 ml 520 ml 0 ml Output Total 30 ml 0 ml Balance 700 ml 490 ml 0 ml Intake Oral 200 ml 520 ml 0 ml IV Total 0 ml 0 ml 0 ml Packed Cells 500 ml Output Urine Total 30 ml 0 ml # Bowel Movements 0 1 2 Result Diagram: 11/02/16 03011/02/16 030 Objective Remarks GENERAL: This is a well-nourished, well-developed patient, in no apparent distress. SKIN: No rashes, ecchymoses or lesions. Cool and dry. HEAD: Atraumatic. Normocephalic. No temporal or scalp tenderness. EYES: Pupils equal round and reactive. Extraocular motions intact. No scleral icterus. No injection or drainage. ENT: Nose without bleeding, purulent drainage or septal hematoma. Throat without erythema, tonsillar hypertrophy or exudate. Uvula midline. Airway patent. NECK: Trachea midline. No JVD or lymphadenopathy. Supple, nontender, no meningeal signs. CARDIOVASCULAR: Regular rate and rhythm without murmurs, gallops, or rubs. RESPIRATORY: Clear to auscultation. Breath sounds equal bilaterally. No wheezes , rales, or rhonchi. GASTROINTESTINAL: Abdomen soft, non-tender, nondistended. No hepato-splenomegaly , or palpable masses. No guarding. MUSCULOSKELETAL: Extremities without clubbing, cyanosis, or edema. No joint tenderness, effusion, or edema noted. No calf tenderness. Negative Homans sign bilaterally. NEUROLOGICAL: Awake and alert. Cranial nerves II through XII intact. Motor and sensory grossly within normal limits. Five out of 5 muscle strength in all muscle groups. Normal speech. A/P Assessment and Plan 70-year-old male with past medical history of ESRD on HD, COPD, and HTN presents with a 2 day history of no energy and shortness of breath GIB /rectal bleeding with symptomatic anemia: Type and cross, transfuse 2 U PRBC on admission. Monitor H/H q6 hrs. On Pantoprazole 40 mg IV bid. Consult GI specialist. Patient says says he is using more NSAIDs for pain lately. Pain meds per pain scale. Avoids NSAIDs 11/02 with significant drop in HGB , 2 PRBC monitor H/H and transfuse if HGB < 7 or if symptomatic anemia and HGB < 9 GI service notified and plan for EGD/Colonoscopy today, keep NPO prep for procedure. Generalized weakness/physical deconditioning. Consult PT/OT ESRD on HD: Stable, no evidence of fluid overload. Nephrology consultation recommendations. Hypertension: Currently controlled. Continue patient's home BP medication regimen. Continue to monitor and adjust medications as needed. Diabetes mellitus type 2: Accuchecks, ISS COPD duonebs as need Chronic shoulder pain. Patient says says he is using more NSAIDs for pain lately. Pain meds per pain scale. Avoids NSAIDs Consult CM for DC plan DVT prophylaxis: SCDs, chemical ppx CI 2/2/ active bleeding Code Status full Discussed Condition With Patient, nurse Discharge Planning pending improvement, consultants clearance for DC Sarah Landrum MD Nov 02, 2016 11:52
[2016-11-02] MEDS ORDERED: BISACODYL EC 5 MG TABEC PO ONE (13:45)
[2016-11-02] MEDS ORDERED: PEG (High)/E-LYTE SOLN 4000 ML BTL PO ONE (13:45)
[2016-11-02 14:13] LABS: REVIEW FLAG FINAL
[2016-11-02] MEDS ORDERED: INSULIN HUMAN REGULAR 1,000 UNITS/10 ML VIAL SQ PRN (16:00)
[2016-11-02] MEDS ORDERED: METOPROLOL TARTRATE 25 MG TAB PO PRN (16:00)
[2016-11-02] MEDS: SODIUM CHLORID 0.9% 500 ML IV SCH (16:00)
--- NOTE | 2016-11-02 16:33 | MB ---
cc: CHESTER NAVARRO MD DATE OF CONSULTATION: 11/02/2016 REASON FOR CONSULTATION: GI bleeding. HISTORY OF PRESENT ILLNESS: This is a 71-year-old male patient with past medical history of diabetes mellitus, hypertension, end-stage kidney disease requiring hemodialysis three times a week who presented to the hospital with generalized weakness and fatigue for two days duration. The patient also noticed several episodes of fresh blood per rectum described as painless without any rectal or abdominal pain. No associated nausea or vomiting. No associated change in bowel habits. The patient had similar episode two years ago and was evaluated by his primary physician at [facility] and was told to avoid aspirin but no endoscopy evaluation was done for him The patient had a previous colonoscopy over ten years ago and it was reported as normal. The patient is a chronic user of aspirin for her shoulder pain. During hospitalization the patient was found to have significant anemia with a hemoglobin of 7.5, hematocrit 21.8 with normochromic normocytic picture suggestive of chronic anemia but she had a follow-up CBC today that showed a drop in hemoglobin to 5.8 and 17.2. GI consulted for further evaluation and possible endoscopy evaluation. REVIEW OF SYSTEMS: All ten-point review of systems elements were negative other than the ones mentioned in history of present illness. PAST MEDICAL HISTORY: 1. Hypertension. 2. Diabetes. 3. End-stage kidney disease. 4. COPD. PAST SURGICAL HISTORY: 1. Peritoneal dialysis catheter. 2. AV fistula placement. 3. Colonoscopy over ten years ago. MEDICATIONS: 1. Metoprolol. 2. Lasix. 3. Lisinopril. 4. Zocor. 5. Norvasc. 6. PhosLo. ALLERGIES: NO KNOWN DRUG ALLERGIES. FAMILY HISTORY: His mother and grandmother had diabetes and kidney failure. PSYCHOSOCIAL HISTORY: The patient denies alcohol, tobacco use or IV drug abuse. PHYSICAL EXAMINATION: GENERAL: On examination, the patient was found to be comfortable and not in distress or in pain. Received his hemodialysis this morning. He is hemodynamically stable with a blood pressure of 130/65, pulse of 52, respiratory rate of 16 and pulse oximetry of 98%. HEAD AND NECK: Atraumatic and normocephalic. Pupils equal and react to light. Supple neck. No lymphadenopathy. No thyromegaly. CHEST: Clear to auscultation bilaterally. No crackles or wheezes. HEART: Regular rate and rhythm. No murmurs. ABDOMEN: Abdomen soft and nontender. No hepatosplenomegaly. No palpable masses. EXTREMITIES: Normal pulses. No edema. NEUROLOGICAL EXAMINATION: Cranial nerves II through XII are grossly intact. SKIN: No rashes or hypopigmentation. LABS: Recent hemoglobin of 5.8, hematocrit 17.2, white count 5.1, platelet count of 157,000. PT and PTT within normal limits. Kidney function showed a creatinine of 12.9, BUN of 19. Electrolytes within normal limits otherwise. Liver function tests are normal. ASSESSMENT AND PLAN: This is a 71-year-old male patient with multiple medical problems including hypertension, diabetes and end-stage renal disease who presented with: 1. Painless rectal bleeding several episodes since admission. 2. Drop in his hemoglobin and hematocrit from a baseline chronic anemia. 3. Previous colonoscopic examination over ten years ago. 4. Chronic use of aspirin and other NSAIDs for shoulder pain. 5. History of weight loss, although intentional. RECOMMENDATIONS: 1. Will proceed with endoscopic evaluation including upper endoscopy and a colonoscopy. The risks, benefits, and possible complications were discussed with the patient and he agreed to proceed with that in the a.m. 2. Will keep him on a clear liquid diet, GoLYTELY, Dulcolax for bowel preparation. 3. Continue proton pump inhibitor for the time being. 4. Follow hemoglobin and hematocrit. 5. Blood transfusion as needed. Further recommendations to follow. Thank you for the consult. Chester GOMES/ARMIDA /1:35 PM /4:22 PM
--- NOTE | 2016-11-02 16:40 | HHI.NPPN ---
Subjective History of Present Illness The patient is a 71 yo AA male who presented to this facility today at the urge of his dialysis nurse as he has been progressively weak and noted BRB NH with BMs. He did not have his regularly scheduled HD today. Says that he has had 2 previous episodes of rectal bleeding in the past that has been attributed to ASA use. He admits that he has been using large doses of Aspirin recently for L shoulder pain. Denies chest pain, abdominal pain, or SOB. Interval History Noted GI consultation in progress. Patient still having red bowel movements. Review of Systems Gastrointestinal Gastrointestinal: Blood/Tarry Stools Objective Data Data 11/01/16 11/02/16 18:59 06:59 Intake Total 700 ml 520 ml Output Total 30 ml Balance 700 ml 490 ml Intake Oral 200 ml 520 ml IV Total 0 ml 0 ml Packed Cells 500 ml Output Urine Total 30 ml # Bowel Movements 0 3 Vital Signs Date Time Temp Pulse Resp B/P Pulse Ox O2 Delivery O2 Flow Rate FiO2 11/02/16 16:00 97.6 68 17 128/70 94 11/02/16 12:42 97.7 72 18 144/69 93 11/02/16 08:00 97.6 57 18 105/61 95 11/02/16 04:00 95.6 54 18 90/51 98 11/02/16 00:00 97.2 55 18 130/68 98 11/01/16 20:24 54 11/01/16 20:00 96.8 55 18 158/78 95 -: 11/02/16 1349 11/02/16 0309 Physical Exam General Appearance: No Acute Distress, Comfortable Eyes Eye Exam: Sclera White Pulmonary Resp Exam: Clear Bilaterally, Breath Sounds Equal, No Distress Cardiology CV Exam: Regular, Normal Sinus Rhythm Gastrointestinal/Abdomen GI Exam: Soft, Non-Tender Integumentary Skin Exam: Clear, Warm, Dry Extremeties Extremities Exam: No Edema Neurologic Neuro Exam: Alert, Awake Assessment/Plan Discussed Condition With: Patient Problem List: (1) End stage renal disease on dialysis Plan: Patient is be stable post hemodialysis.. To resume MWF thereafter. Dr. Watkins his outpatient gore seamer will be resuming patient's care this Friday Medications should be adjusted for ESRD. Avoid gadolinium. (2) HTN (hypertension) Plan: Continue on home medication regimen (3) Anemia Plan: Known GI bleed. GI has been consulted. Did discuss with the patient about excessive ASA use as he is at high risk of UGI bleeding with NSAIDs as a dialysis patient. Would recommend outpatient evaluation with an orthopedist to see if anything can be done about continued L shoulder pain. Problem Qualifiers (1) Anemia: Qualified Code: D64.9 - Anemia, unspecified type Marilyn Brito MD Nov 02, 2016 16:40
[2016-11-02] MEDS: PRAVASTATIN SOD 40 MG TAB PO SCH (19:39)
[2016-11-02] MEDS: LACTATED RINGER'S 1000 ML IV SCH (19:41)
[2016-11-03] VITALS (7 sets, daily range): BP systolic 131–181; BP diastolic 59–85; PULSE 58–89; RESP 18–20; TEMP 97.3–98.6; O2SAT 93–95
[2016-11-03] MEDS: ACETAMINOPHEN/HYDROcodone 325 MG/10 MG TAB PO PRN ×2 (05:54→16:40)
[2016-11-03 07:05] LABS: AUTOMATED NEUTROPHIL # 4.3 TH/MM3 (1.8-7.7); BASOPHIL % 0.4 % (0.0-2.0); EOSINOPHIL # 0.1 TH/MM3 (0-0.4); EOSINOPHIL % 1.4 % (0.0-4.0); HEMATOCRIT 25.8 % (39.0-51.0); HEMO FLAGS DIFF FINAL; LYMPH % 13.2 % (9.0-44.0); LYMPHOCYTE # 0.8 TH/MM3 (1.0-4.8); MEAN CELL VOLUME 82.2 FL (80.0-100.0); MEAN CORPUSCULAR HEMOGLOBIN 28.7 PG (27.0-34.0); MEAN CORPUSCULAR HGB CONC 34.9 % (32.0-36.0); MONO % 12.1 % (0.0-8.0); NEUT % 72.9 % (16.0-70.0); PLATELET COUNT 109 TH/MM3 (150-450); RED BLOOD COUNT 3.14 MIL/MM3 (4.50-5.90); RED CELL DISTRIBUTION WIDTH 16.1 % (11.6-17.2); WHITE BLOOD COUNT 5.9 TH/MM3 (4.0-11.0)
[2016-11-03 07:17] LABS: BICARBONATE 29.1 MEQ/L (21.0-32.0); POTASSIUM 4.2 MEQ/L (3.5-5.1)
[2016-11-03] MEDS: METOPROLOL TARTRATE 25 MG TAB PO SCH ×2 (08:13→19:51)
[2016-11-03] MEDS: CALCIUM ACETATE 667 MG CAP PO SCH ×3 (08:14→16:40)
[2016-11-03] MEDS: DOXAZOSIN MESYLATE 4 MG TAB PO SCH (08:14)
[2016-11-03] MEDS: amLODIPine BESYLATE 5 MG TAB PO SCH ×2 (08:14→19:51)
[2016-11-03] MEDS: LISINOPRIL 20 MG TAB PO SCH (08:14)
[2016-11-03] MEDS: SODIUM CHLORID 0.9% 500 ML IV SCH (08:40)
[2016-11-03] MEDS: PANTOPRAZOLE SODIUM 40 MG VIAL IV PUSH SCH ×2 (11:26→19:56)
--- NOTE | 2016-11-03 12:28 | HHI.PR ---
Subjective Remarks Says he feels improved today. Has 2 bloody BM since yesterday. No chest pain. Less sob and feesl he is getting back strength. No fever or chills. No n/v/d/c. Objective Vitals Vital Signs Date Time Temp Pulse Resp B/P Pulse Ox O2 Delivery O2 Flow Rate FiO2 11/03/16 11:31 97.9 62 18 158/78 95 11/03/16 08:00 98.5 66 19 175/80 95 11/03/16 04:00 97.7 62 18 131/59 95 11/03/16 00:00 98.6 65 20 158/81 93 11/02/16 21:44 97.6 73 20 144/69 93 11/02/16 20:00 71 11/02/16 20:00 97.7 72 20 149/114 95 11/02/16 19:27 91 21 11/02/16 17:07 98.1 76 16 149/80 94 11/02/16 16:45 97.9 74 17 152/66 96 11/02/16 16:00 97.6 68 17 128/70 94 11/02/16 12:42 97.7 72 18 144/69 93 I/O 11/02/16 11/02/16 11/02/16 11/03/16 11/03/16 11/03/16 07:00 15:00 23:00 07:00 15:00 23:00 Intake Total 0 ml 0 ml 970 ml 260 ml 120 ml Output Total 0 ml 3600 ml 0 ml 0 ml Balance 0 ml -3600 ml 970 ml 260 ml 120 ml Intake Oral 0 ml 0 ml 720 ml 0 ml 120 ml IV Total 0 ml 0 ml 10 ml Packed Cells 250 ml 250 ml Output Urine Total 0 ml 100 ml 0 ml 0 ml Hemodialysis 3500 ml # Bowel Movements 2 Result Diagram: 11/03/1646 11/03/1646 Objective Remarks GENERAL: This is a well-nourished, well-developed patient, in no apparent distress. SKIN: No rashes, ecchymoses or lesions. Cool and dry. HEAD: Atraumatic. Normocephalic. No temporal or scalp tenderness. EYES: Pupils equal round and reactive. Extraocular motions intact. No scleral icterus. No injection or drainage. ENT: Nose without bleeding, purulent drainage or septal hematoma. Throat without erythema, tonsillar hypertrophy or exudate. Uvula midline. Airway patent. NECK: Trachea midline. No JVD or lymphadenopathy. Supple, nontender, no meningeal signs. CARDIOVASCULAR: Regular rate and rhythm without murmurs, gallops, or rubs. RESPIRATORY: Clear to auscultation. Breath sounds equal bilaterally. No wheezes , rales, or rhonchi. GASTROINTESTINAL: Abdomen soft, non-tender, nondistended. No hepato-splenomegaly , or palpable masses. No guarding. MUSCULOSKELETAL: Extremities without clubbing, cyanosis, or edema. No joint tenderness, effusion, or edema noted. No calf tenderness. Negative Homans sign bilaterally. NEUROLOGICAL: Awake and alert. Cranial nerves II through XII intact. Motor and sensory grossly within normal limits. Five out of 5 muscle strength in all muscle groups. Normal speech. A/P Assessment and Plan 70-year-old male with past medical history of ESRD on HD, COPD, and HTN presents with a 2 day history of no energy and shortness of breath GIB /rectal bleeding with symptomatic anemia: Type and cross, transfuse 2 U PRBC on admission. Monitor H/H q6 hrs. On Pantoprazole 40 mg IV bid. Consult GI specialist. Patient says says he is using more NSAIDs for pain lately. Pain meds per pain scale. Avoids NSAIDs 11/02 with significant drop in HGB , 2 PRBC monitor H/H and transfuse if HGB < 7 or if symptomatic anemia and HGB < 9 Patient still with SOB and wekness after blood transfusion, transfused 2 U PRBC last nioght. He feels much better today 11/03/16 GI service notified and plan for EGD/Colonoscopy today, keep NPO preped for procedure. Generalized weakness/physical deconditioning likely 2/2 anemia. Consult PT/OT ESRD on HD: Stable, no evidence of fluid overload. Nephrology consultation recommendations. Hypertension: Currently controlled. Continue patient's home BP medication regimen. Continue to monitor and adjust medications as needed. Diabetes mellitus type 2: Accuchecks, ISS COPD duonebs as need Chronic shoulder pain. Patient says says he is using more NSAIDs for pain lately. Pain meds per pain scale. Avoids NSAIDs Consult CM for DC plan DVT prophylaxis: SCDs, chemical ppx CI 2/2/ active bleeding Code Status full Discussed Condition With Patient, nurse DC when improved and cleared by consultants Sarah Landrum MD Nov 03, 2016 12:28
[2016-11-03] MEDS ORDERED: PROPOFOL 200 MG/20 ML AMP IV ONE (13:43)
[2016-11-03] MEDS ORDERED: DO NOT ADM ANY ANTICOAGULANT DRUGS XX PRN (14:23)
[2016-11-03] MEDS: LACTATED RINGER'S 1000 ML IV SCH (16:00)
[2016-11-03] MEDS: SODIUM CHLORIDE 0.9% FLUSH 5 ML FLUSH FLUSH SCH ×2 (16:40→19:50)
[2016-11-03] MEDS: PRAVASTATIN SOD 40 MG TAB PO SCH (19:50)
--- NOTE | 2016-11-03 20:43 | HHI.PR ---
Subjective Remarks Patient says he feels improved. SOB and weakness improved. He did have 2 bloody BM yesterday none today. Says is was less blood coming out. Denies cp, sob, n/v /d/c. Objective Vitals Vital Signs Date Time Temp Pulse Resp B/P Pulse Ox O2 Delivery O2 Flow Rate FiO2 11/03/16 17:33 Nasal Cannula 2.00 11/03/16 16:00 97.4 58 18 181/85 95 11/03/16 14:38 97.5 53 14 171/84 100 Nasal Cannula 2 11/03/16 14:30 54 14 164/82 99 Nasal Cannula 2 11/03/16 14:20 97.7 58 14 153/81 100 Nasal Cannula 2 11/03/16 11:31 97.9 62 18 158/78 95 11/03/16 08:00 98.5 66 19 175/80 95 11/03/16 04:00 97.7 62 18 131/59 95 11/03/16 00:00 98.6 65 20 158/81 93 11/02/16 21:44 97.6 73 20 144/69 93 I/O 11/02/16 11/02/16 11/02/16 11/03/16 11/03/16 11/03/16 07:00 15:00 23:00 07:00 15:00 23:00 Intake Total 0 ml 0 ml 970 ml 260 ml 430 ml 240 ml Output Total 0 ml 3600 ml 0 ml 0 ml 450 ml Balance 0 ml -3600 ml 970 ml 260 ml -20 ml 240 ml Intake Oral 0 ml 0 ml 720 ml 0 ml 120 ml 240 ml IV Total 0 ml 0 ml 10 ml 10 ml 0 ml Packed Cells 250 ml 250 ml Other 300 ml Output Urine Total 0 ml 100 ml 0 ml 0 ml 400 ml Hemodialysis 3500 ml Estimated Blood Loss 50 ml # Voids 0 # Bowel Movements 2 0 Result Diagram: 11/03/1646 11/03/1646 Objective Remarks GENERAL: This is a well-nourished, well-developed patient, in no apparent distress. SKIN: No rashes, ecchymoses or lesions. Cool and dry. HEAD: Atraumatic. Normocephalic. No temporal or scalp tenderness. EYES: Pupils equal round and reactive. Extraocular motions intact. No scleral icterus. No injection or drainage. ENT: Nose without bleeding, purulent drainage or septal hematoma. Throat without erythema, tonsillar hypertrophy or exudate. Uvula midline. Airway patent. NECK: Trachea midline. No JVD or lymphadenopathy. Supple, nontender, no meningeal signs. CARDIOVASCULAR: Regular rate and rhythm without murmurs, gallops, or rubs. RESPIRATORY: Clear to auscultation. Breath sounds equal bilaterally. No wheezes , rales, or rhonchi. GASTROINTESTINAL: Abdomen soft, non-tender, nondistended. No hepato-splenomegaly , or palpable masses. No guarding. MUSCULOSKELETAL: Extremities without clubbing, cyanosis, or edema. No joint tenderness, effusion, or edema noted. No calf tenderness. Negative Homans sign bilaterally. NEUROLOGICAL: Awake and alert. Cranial nerves II through XII intact. Motor and sensory grossly within normal limits. Five out of 5 muscle strength in all muscle groups. Normal speech. A/P Assessment and Plan 70-year-old male with past medical history of ESRD on HD, COPD, and HTN presents with a 2 day history of no energy and shortness of breath GIB /rectal bleeding with symptomatic anemia: Type and cross, transfuse 2 U PRBC on admission. Monitor H/H q6 hrs. On Pantoprazole 40 mg IV bid. Consult GI specialist. Patient says says he is using more NSAIDs for pain lately. Pain meds per pain scale. Avoids NSAIDs 11/02 with significant drop in HGB , 2 PRBC monitor H/H and transfuse if HGB < 7 or if symptomatic anemia and HGB < 9 Patient still with SOB and weakness after blood transfusion, transfused 2 U PRBC last night. He feels much better today 11/03/16 GI service notified and plan for EGD/Colonoscopy today, keep NPO preped for procedure. Generalized weakness/physical deconditioning likely 2/2 anemia. Consult PT/OT ESRD on HD: Stable, no evidence of fluid overload. Nephrology consultation recommendations. Hypertension: Currently controlled. Continue patient's home BP medication regimen. Continue to monitor and adjust medications as needed. Diabetes mellitus type 2: Accuchecks, ISS COPD duonebs as need Chronic shoulder pain. Patient says says he is using more NSAIDs for pain lately. Pain meds per pain scale. Avoids NSAIDs Consult CM for DC plan DVT prophylaxis: SCDs, chemical ppx CI 2/2/ active bleeding Code Status full Discussed Condition With Patient, nurse DC when improved and cleared by consultants Sarah Landrum MD Nov 03, 2016 20:43
[2016-11-04] VITALS: BP 164/78; PULSE 56; RESP 18; TEMP 97.8; O2SAT 94
[2016-11-04 04:00] VITALS: BP 172/81; PULSE 57; RESP 18; TEMP 97.8; O2SAT 94
[2016-11-04] MEDS: ACETAMINOPHEN/HYDROcodone 325 MG/10 MG TAB PO PRN (05:42)
[2016-11-04 05:44] LABS: AUTOMATED NEUTROPHIL # 4.4 TH/MM3 (1.8-7.7); BASOPHIL % 0.6 % (0.0-2.0); EOSINOPHIL # 0.1 TH/MM3 (0-0.4); EOSINOPHIL % 1.5 % (0.0-4.0); HEMATOCRIT 27.3 % (39.0-51.0); HEMO FLAGS DIFF FINAL; LYMPH % 11.9 % (9.0-44.0); LYMPHOCYTE # 0.7 TH/MM3 (1.0-4.8); MEAN CELL VOLUME 83.5 FL (80.0-100.0); MEAN CORPUSCULAR HEMOGLOBIN 28.5 PG (27.0-34.0); MEAN CORPUSCULAR HGB CONC 34.2 % (32.0-36.0); MONO % 12.7 % (0.0-8.0); NEUT % 73.3 % (16.0-70.0); PLATELET COUNT 113 TH/MM3 (150-450); RED BLOOD COUNT 3.27 MIL/MM3 (4.50-5.90); RED CELL DISTRIBUTION WIDTH 16.3 % (11.6-17.2)
[2016-11-04 06:16] LABS: POTASSIUM 4.4 MEQ/L (3.5-5.1)
[2016-11-04 08:00] VITALS: BP 170/81; PULSE 58; RESP 20; TEMP 98.4; O2SAT 95
[2016-11-04] MEDS: DOXAZOSIN MESYLATE 4 MG TAB PO SCH (08:06)
[2016-11-04] MEDS: amLODIPine BESYLATE 5 MG TAB PO SCH (08:06)
[2016-11-04] MEDS: LISINOPRIL 20 MG TAB PO SCH (08:06)
[2016-11-04] MEDS: METOPROLOL TARTRATE 25 MG TAB PO SCH (08:06)
[2016-11-04] MEDS: CALCIUM ACETATE 667 MG CAP PO SCH ×3 (08:06→18:00)
[2016-11-04] MEDS: SODIUM CHLORIDE 0.9% FLUSH 5 ML FLUSH FLUSH SCH (08:08)
[2016-11-04] MEDS: PANTOPRAZOLE SODIUM 40 MG VIAL IV PUSH SCH (08:10)
[2016-11-04 08:53] VITALS: O2SAT 95
--- NOTE | 2016-11-04 09:38 | HHI.PR ---
Subjective Remarks He had 2 BM s yesterday less bloody. No chest pain. SOB improving. With weakness improving. Denies fever or chills. No BM today. Objective Vitals Vital Signs Date Time Temp Pulse Resp B/P Pulse Ox O2 Delivery O2 Flow Rate FiO2 11/04/16 08:53 95 21 11/04/16 08:00 98.4 58 20 170/81 95 11/04/16 04:00 97.8 57 18 172/81 94 11/04/16 00:00 97.8 56 18 164/78 94 11/03/16 21:36 59 11/03/16 20:00 97.3 89 18 172/82 95 11/03/16 17:33 Nasal Cannula 2.00 11/03/16 16:00 97.4 58 18 181/85 95 11/03/16 14:38 97.5 53 14 171/84 100 Nasal Cannula 2 11/03/16 14:30 54 14 164/82 99 Nasal Cannula 2 11/03/16 14:20 97.7 58 14 153/81 100 Nasal Cannula 2 11/03/16 11:31 97.9 62 18 158/78 95 I/O 11/03/16 11/03/16 11/03/16 11/04/16 11/04/16 11/04/16 06:59 14:59 22:59 06:59 14:59 22:59 Intake Total 260 ml 430 ml 360 ml 0 ml Output Total 0 ml 450 ml 200 ml Balance 260 ml -20 ml 160 ml 0 ml Intake Oral 0 ml 120 ml 360 ml 0 ml IV Total 10 ml 10 ml 0 ml 0 ml Packed Cells 250 ml Other 300 ml Output Urine Total 0 ml 400 ml 200 ml Estimated Blood Loss 50 ml # Voids 0 0 # Bowel Movements 0 0 0 Result Diagram: 11/04/1651611/04/16516 Objective Remarks GENERAL: This is a well-nourished, well-developed patient, in no apparent distress. SKIN: No rashes, ecchymoses or lesions. Cool and dry. HEAD: Atraumatic. Normocephalic. No temporal or scalp tenderness. EYES: Pupils equal round and reactive. Extraocular motions intact. No scleral icterus. No injection or drainage. ENT: Nose without bleeding, purulent drainage or septal hematoma. Throat without erythema, tonsillar hypertrophy or exudate. Uvula midline. Airway patent. NECK: Trachea midline. No JVD or lymphadenopathy. Supple, nontender, no meningeal signs. CARDIOVASCULAR: Regular rate and rhythm without murmurs, gallops, or rubs. RESPIRATORY: Clear to auscultation. Breath sounds equal bilaterally. No wheezes , rales, or rhonchi. GASTROINTESTINAL: Abdomen soft, non-tender, nondistended. No hepato-splenomegaly , or palpable masses. No guarding. MUSCULOSKELETAL: Extremities without clubbing, cyanosis, or edema. No joint tenderness, effusion, or edema noted. No calf tenderness. Negative Homans sign bilaterally. NEUROLOGICAL: Awake and alert. Cranial nerves II through XII intact. Motor and sensory grossly within normal limits. Five out of 5 muscle strength in all muscle groups. Normal speech. A/P Assessment and Plan 70-year-old male with past medical history of ESRD on HD, COPD, and HTN presents with a 2 day history of no energy and shortness of breath GIB /rectal bleeding with symptomatic anemia: Type and cross, transfuse 2 U PRBC on admission. Monitor H/H q6 hrs. On Pantoprazole 40 mg IV bid. Consult GI specialist. Patient says says he is using more NSAIDs for pain lately. Pain meds per pain scale. Avoids NSAIDs 11/02 with significant drop in HGB , 2 PRBC monitor H/H and transfuse if HGB < 7 or if symptomatic anemia and HGB < 9 Patient still with SOB and weakness after blood transfusion, transfused 2 U PRBC last night. He feels much better today 11/03/16 s/p EGD/Colonoscopy patient with diverticular bleed per GI and also with gastritis. Generalized weakness/physical deconditioning likely 2/2 anemia. Consult PT/OT ESRD on HD: Stable, no evidence of fluid overload. Nephrology consultation recommendations. Hypertension: Currently controlled. Continue patient's home BP medication regimen. Continue to monitor and adjust medications as needed. Diabetes mellitus type 2: Accuchecks, ISS COPD duonebs as need Chronic shoulder pain. Patient says says he is using more NSAIDs for pain lately. Pain meds per pain scale. Avoids NSAIDs Consult CM for DC plan DVT prophylaxis: SCDs, chemical ppx CI 2/2/ active bleeding Code Status full Discussed Condition With Patient, nurse DC poss later today Sarah Landrum MD Nov 04, 2016 09:38
[2016-11-04] MEDS ORDERED: METO25TA3 PO (09:45)
[2016-11-04] MEDS ORDERED: NORC5TAB PO (09:45)
--- NOTE | 2016-11-04 09:46 | HHI.DS ---
Discharge Summary Admission Date Nov 01, 2016 at 09:34 Discharge Date: Nov 04, 2016 Admitting Diagnosis rectal bleeding (1) Rectal bleeding ICD Code: K62.5 Diagnosis: Principal (2) HTN (hypertension) ICD Code: I10 Diagnosis: Secondary (3) Anemia ICD Code: D64.9 Diagnosis: Principal (4) ESRD on dialysis ICD Code: N18.6 Diagnosis: Secondary (5) SOB (shortness of breath) ICD Code: R06.02 Diagnosis: Principal (6) DM (diabetes mellitus) ICD Code: E11.9 Diagnosis: Secondary Procedures EGD/ colonoscopy Brief History - From Admission Patient is a 71 yo male, with PMH of EDRD, HTN, DM presents with chief complaint of weakness. He reports that he has been feeling poorly for about the last week or so. It has been acutely worse for the last 2 days. He has end -stage renal disease on dialysis. He went to dialysis this morning and they suggested that he come here for evaluation. Patient admits to a couple of syncopal episodes at home. He states that he feels very weak and fatigued. He is short of breath and has dyspnea on exertion. He reports taking aspirin for shoulder pain and is now passing blood per rectum. He states that he passed 3 large grossly positive stools yesterday. Patient was seen here in the recent past for hypoglycemia. He has had a very poor appetite and weight loss and has been having trouble maintaining his blood sugars. CBC/BMP: 11/04/16 0517 11/04/16 0517 Significant Findings Laboratory Tests Test 11/01/16 11/01/16 11/02/16 11/02/16 21:30 23:04 03:09 13:49 Urine Protein 100 mg/dL (NEG-TRACE) Urine Occult Blood TRACE (NEG) Parathyroid Hormone (Intact) 173.8 PG/ML (12.4-76.8) Red Blood Count 2.05 MIL/MM3 (4.50-5.90) Hemoglobin 5.8 GM/DL 7.2 GM/DL (13.0-17.0) (13.0-17.0) Hematocrit 17.2 % 21.0 % (39.0-51.0) (39.0-51.0) Red Cell Distribution Width 18.7 % (11.6-17.2) Platelet Count 134 TH/MM3 (150-450) Neutrophils (%) (Auto) 81.0 % (16.0-70.0) Lymphocytes (%) (Auto) 8.8 % (9.0-44.0) Monocytes (%) (Auto) 8.6 % (0.0-8.0) Lymphocytes # (Auto) 0.4 TH/MM3 (1.0-4.8) Blood Urea Nitrogen 90 MG/DL (7-18) Creatinine 12.90 MG/DL (0.60-1.30) Estimat Glomerular Filtration 5 ML/MIN (>89) Rate Random Glucose 113 MG/DL (74-106) Total Iron Binding Capacity 167 MCG/DL (250-450) Percent Iron Saturation 66.6 % (20-50) Test 11/03/16 11/04/16 05:46 05:17 Red Blood Count 3.14 MIL/MM3 3.27 MIL/MM3 (4.50-5.90) (4.50-5.90) Hemoglobin 9.0 GM/DL 9.3 GM/DL (13.0-17.0) (13.0-17.0) Hematocrit 25.8 % 27.3 % (39.0-51.0) (39.0-51.0) Platelet Count 109 TH/MM3 113 TH/MM3 (150-450) (150-450) Neutrophils (%) (Auto) 72.9 % 73.3 % (16.0-70.0) (16.0-70.0) Monocytes (%) (Auto) 12.1 % 12.7 % (0.0-8.0) (0.0-8.0) Lymphocytes # (Auto) 0.8 TH/MM3 0.7 TH/MM3 (1.0-4.8) (1.0-4.8) Blood Urea Nitrogen 59 MG/DL (7-18) 64 MG/DL (7-18) Creatinine 9.31 MG/DL 11.28 MG/DL (0.60-1.30) (0.60-1.30) Estimat Glomerular Filtration 7 ML/MIN (>89) 5 ML/MIN (>89) Rate Calcium Level 8.3 MG/DL (8.5-10.1) PE at Discharge GENERAL: This is a well-nourished, well-developed patient, in no apparent distress. SKIN: No rashes, ecchymoses or lesions. Cool and dry. HEAD: Atraumatic. Normocephalic. No temporal or scalp tenderness. EYES: Pupils equal round and reactive. Extraocular motions intact. No scleral icterus. No injection or drainage. ENT: Nose without bleeding, purulent drainage or septal hematoma. Throat without erythema, tonsillar hypertrophy or exudate. Uvula midline. Airway patent. NECK: Trachea midline. No JVD or lymphadenopathy. Supple, nontender, no meningeal signs. CARDIOVASCULAR: Regular rate and rhythm without murmurs, gallops, or rubs. RESPIRATORY: Clear to auscultation. Breath sounds equal bilaterally. No wheezes , rales, or rhonchi. GASTROINTESTINAL: Abdomen soft, non-tender, nondistended. No hepato-splenomegaly , or palpable masses. No guarding. MUSCULOSKELETAL: Extremities without clubbing, cyanosis, or edema. No joint tenderness, effusion, or edema noted. No calf tenderness. Negative Homans sign bilaterally. NEUROLOGICAL: Awake and alert. Cranial nerves II through XII intact. Motor and sensory grossly within normal limits. Five out of 5 muscle strength in all muscle groups. Normal speech. Hospital Course 70-year-old male with past medical history of ESRD on HD, COPD, and HTN presents with a 2 day history of no energy and shortness of breath GIB /rectal bleeding with symptomatic anemia: Type and cross, transfuse 2 U PRBC on admission. Monitor H/H q6 hrs. On Pantoprazole 40 mg IV bid. Consult GI specialist. Patient says says he is using more NSAIDs for pain lately. Pain meds per pain scale. Avoids NSAIDs 11/02 with significant drop in HGB , 2 PRBC monitor H/H and transfuse if HGB < 7 or if symptomatic anemia and HGB < 9 Patient still with SOB and weakness after blood transfusion, transfused 2 U PRBC last night. He feels much better today 11/03/16 s/p EGD/Colonoscopy patient with diverticulosis and antral gastritis. Biopsy od antral region pending. Cleared by GI for Dc to follow up as OP for repeat colonoscopy and also for biopsy results. Generalized weakness/physical deconditioning likely 2/2 anemia. Consult PT/OT ESRD on HD: Stable, no evidence of fluid overload. Nephrology consultation recommendations. Hypertension: Currently controlled. Continue patient's home BP medication regimen. Continue to monitor and adjust medications as needed. Diabetes mellitus type 2: Accuchecks, ISS COPD duonebs as need Chronic shoulder pain. Patient says says he is using more NSAIDs for pain lately. Pain meds per pain scale. Avoids NSAIDs Consult CM for DC plan DVT prophylaxis: SCDs, chemical ppx CI 2/2/ active bleeding Improved, cleared by consultants to followup as OP with PCP and consultants. Pt Condition on Discharge: Fair Discharge Disposition: Disch w/ Home Health Serv Discharge Time: > 30 minutes Discharge Instructions DIET: Follow Instructions for: Heart Healthy Diet Activities you can perform: Regular-No Restrictions Follow up Referrals: Gastroenterology - 11/18/16 with Chester Leslie MD Nephrology - 3-5 Days PCP Follow-up - 3-5 Days New Medications: Docusate Sodium (Colace) 100 Mg Cap 100 MG PO BID Constipation #60 Ref 0 CAP Ferrous Sulfate (Ferrous Sulfate) 325 Mg Tab 325 MG PO DAILY Nutritional Supplement #30 Ref 0 TAB Hydrocodone-Acetaminophen ([place]) 5-325 mg Tab 1 TAB PO Q4H PRN PAIN #20 Ref 0 TAB Pantoprazole (Protonix) 40 Mg Tab 40 MG PO DAILY Ulcer Prevention #30 Ref 0 TAB Metoprolol Tartrate (Metoprolol Tartrate) 25 Mg Tab 25 MG PO Q12HR Blood Pressure Management #60 TAB Continued Medications: Amlodipine (Norvasc) 5 Mg Tab 5 MG PO DAILY Blood Pressure Management #30 Ref 0 TAB Calcium Acetate (Phosphate Binder) (Phoslo) 667 Mg Cap 1334 MG PO TID Hyperphosphatemia #180 Ref 0 CAP Cholecalciferol (D 5000) 5,000 Unit Cap Cholecalciferol (D-5000) 5,000 Unit Tab TAB PO DAILY Doxazosin (Doxazosin) 4 Mg Tab 4 MG PO DAILY TAB Furosemide (Lasix) 80 Mg Tab 80 MG PO DAILY #30 Ref 0 TAB Lisinopril (Lisinopril) 20 Mg Tab 20 MG PO DAILY #30 Ref 0 TAB Simvastatin (Zocor) 20 Mg Tab 20 MG PO HS Cholesterol Management #30 Ref 0 TAB Discontinued Medications: Metoprolol Tartrate (Metoprolol Tartrate) 50 Mg Tab 50 MG PO DAILY #30 Ref 0 TAB Sarah Landrum MD Nov 04, 2016 09:46
--- NOTE | 2016-11-04 09:46 | HHI.FF ---
Face to Face Verification Diagnosis: (1) SOB (shortness of breath) (2) ESRD on dialysis (3) Hypoglycemia (4) End stage renal disease on dialysis (5) Anemia (6) DM (diabetes mellitus) (7) Rectal bleeding (8) HTN (hypertension) Physical Therapy Order: Evaluate and Treat Home Health Nursing Order: Medical education Signs/symptoms of disease process Medication education-adverse effect Nursing assessment with vital signs I have seen patient Travon Canela on 11/04/16. My clinical findings support the need for the requested home health care services because: Ltd mobility - disease progression Patient has SOB I certify that my clinical findings support that this patient is homebound because: Post-op weakness Sarah Landrum MD Nov 04, 2016 09:46
--- NOTE | 2016-11-04 09:49 | HHI.DCPOC ---
Discharge Care Plan Goals to Promote Your Health * To prevent worsening of your condition and complications * To maintain your health at the optimal level Directions to Meet Your Goals Take your medications as prescribed Follow your dietary instruction Follow activity as directed Keep your appointments as scheduled Take your immunizations and boosters as scheduled If your symptoms worsen call your PCP, if no PCP go to Urgent Care Center or Emergency Room Smoking is Dangerous to Your Health. Avoid second hand smoke Call the 24-hour hour crisis hotline for domestic abuse at Sarah Landrum MD Nov 04, 2016 09:49
[2016-11-04] MEDS ORDERED: PROT40TA PO (09:51)
[2016-11-04] MEDS ORDERED: COLA100C3 PO (09:51)
[2016-11-04] MEDS ORDERED: FUROSEMIDE 80 MG TAB PO ONE (10:00)
--- NOTE | 2016-11-04 10:48 | HHI.GIFU ---
Subjective Remarks Less bleeding since endoscopies, feeling better and requesting more food. Objective Vitals I&O Vital Signs Date Time Temp Pulse Resp B/P Pulse Ox O2 Delivery O2 Flow Rate FiO2 11/04/16 08:53 95 21 11/04/16 08:00 98.4 58 20 170/81 95 11/04/16 04:00 97.8 57 18 172/81 94 11/04/16 00:00 97.8 56 18 164/78 94 11/03/16 21:36 59 11/03/16 20:00 97.3 89 18 172/82 95 11/03/16 17:33 Nasal Cannula 2.00 11/03/16 16:00 97.4 58 18 181/85 95 11/03/16 14:38 97.5 53 14 171/84 100 Nasal Cannula 2 11/03/16 14:30 54 14 164/82 99 Nasal Cannula 2 11/03/16 14:20 97.7 58 14 153/81 100 Nasal Cannula 2 11/03/16 11:31 97.9 62 18 158/78 95 I/O 11/03/16 11/03/16 11/03/16 11/04/16 11/04/16 11/04/16 06:59 14:59 22:59 06:59 14:59 22:59 Intake Total 260 ml 430 ml 360 ml 0 ml Output Total 0 ml 450 ml 200 ml Balance 260 ml -20 ml 160 ml 0 ml Intake Oral 0 ml 120 ml 360 ml 0 ml IV Total 10 ml 10 ml 0 ml 0 ml Packed Cells 250 ml Other 300 ml Output Urine Total 0 ml 400 ml 200 ml Estimated Blood Loss 50 ml # Voids 0 0 # Bowel Movements 0 0 0 Laboratory Laboratory Tests Test 11/04/16 05:17 White Blood Count 6.0 Red Blood Count 3.27 Hemoglobin 9.3 Hematocrit 27.3 Mean Corpuscular Volume 83.5 Mean Corpuscular Hemoglobin 28.5 Mean Corpuscular Hemoglobin 34.2 Concent Red Cell Distribution Width 16.3 Platelet Count 113 Mean Platelet Volume 8.0 Neutrophils (%) (Auto) 73.3 Lymphocytes (%) (Auto) 11.9 Monocytes (%) (Auto) 12.7 Eosinophils (%) (Auto) 1.5 Basophils (%) (Auto) 0.6 Neutrophils # (Auto) 4.4 Lymphocytes # (Auto) 0.7 Monocytes # (Auto) 0.8 Eosinophils # (Auto) 0.1 Basophils # (Auto) 0.0 CBC Comment DIFF FINAL Differential Comment Sodium Level 139 Potassium Level 4.4 Chloride Level 98 Carbon Dioxide Level 27.0 Anion Gap 14 Blood Urea Nitrogen 64 Creatinine 11.28 Estimat Glomerular Filtration 5 Rate Random Glucose 80 Calcium Level 8.7 Physical Exam HEENT: Pupils round and reactive to light; normocephalic; atraumatic; no jaundice. Throat is clear. NECK: Neck is supple, no JVD, no lymphadenopathy. CHEST: Chest is clear to auscultation and percussion. CARDIAC: Regular rate and rhythm with no murmur gallop or rubs. ABDOMEN: Soft, nondistended, nontender; no hepatosplenomegaly; bowel sounds are present in all four quadrants. EXTREMITIES: No clubbing, cyanosis, or edema. SKIN: Normal; no rash; no jaundice. Assessment and Plan Plan This is a 71-year-old male patient with multiple medical problems including hypertension, diabetes and end-stage renal disease who presented with: 1. Painless rectal bleeding several episodes since admission. 2. Drop in his hemoglobin and hematocrit from a baseline chronic anemia. 3. Previous colonoscopic examination over ten years ago. 4. Chronic use of aspirin and other NSAIDs for shoulder pain. 5. History of weight loss, although intentional. 6. Diverticulosis by Colonoscopy and evidence of recent bleeding, but site couldn't be detected. 7. Antral Gastritis, biopsies taken RECOMMENDATIONS: - Await biopsy result - Full liquid diet - Continue proton pump inhibitor for the time being. - Follow hemoglobin and hematocrit. - Blood transfusion as needed. - Bleeding scan if rebleeds - Avoid NSAIDs - Repeat Colonoscopy with better prep as outpatient while not bleeding - Further recommendations to follow. Chester Leslie MD Nov 04, 2016 10:48
--- NOTE | 2016-11-04 11:19 | HHI.NPPN ---
Subjective General Problems: Anemia Renal Failure: Chronic, End Stage Renal Disease Interval History Due for dialysis today. No acute concerns. Anemia stable. (Michelle Aldrich) Review of Systems Gastrointestinal Gastrointestinal: Blood/Tarry Stools (Michelle Aldrich) Objective Data Data 11/03/16 11/04/16 19:00 07:00 Intake Total 670 ml 120 ml Output Total 450 ml 200 ml Balance 220 ml -80 ml Intake Oral 360 ml 120 ml IV Total 10 ml 0 ml Other 300 ml Output Urine Total 400 ml 200 ml Estimated Blood Loss 50 ml # Voids 0 0 # Bowel Movements 0 0 Vital Signs Date Time Temp Pulse Resp B/P Pulse Ox O2 Delivery O2 Flow Rate FiO2 11/04/16 08:53 95 21 11/04/16 08:00 98.4 58 20 170/81 95 11/04/16 04:00 97.8 57 18 172/81 94 11/04/16 00:00 97.8 56 18 164/78 94 11/03/16 21:36 59 11/03/16 20:00 97.3 89 18 172/82 95 11/03/16 17:33 Nasal Cannula 2.00 11/03/16 16:00 97.4 58 18 181/85 95 11/03/16 14:38 97.5 53 14 171/84 100 Nasal Cannula 2 11/03/16 14:30 54 14 164/82 99 Nasal Cannula 2 11/03/16 14:20 97.7 58 14 153/81 100 Nasal Cannula 2 11/03/16 11:31 97.9 62 18 158/78 95 (Michelle Aldrich) -: 11/04/16 0517 11/04/16 0517 Physical Exam General Appearance: No Acute Distress, Comfortable (Michelle Aldrich) Eyes Eye Exam: Sclera White (Michelle Aldrich) Throat Throat Exam: Oral Mucosa Tye & Moist (Michelle Aldrich) Pulmonary Resp Exam: Clear Bilaterally, Breath Sounds Equal, No Distress (Michelle Aldrich) Cardiology CV Exam: Regular, Normal Sinus Rhythm (Michelle Aldrich) Gastrointestinal/Abdomen GI Exam: Soft, Non-Tender, Bowel Sounds Present (Michelle Aldrich) Musculoskeletal MS Exam: Joints Intact, Normal Tone (Michelle Aldrich) Integumentary Skin Exam: Clear, Warm, Dry (Michelle Aldrich) Extremeties Extremities Exam: No Edema, Pedal Pulses Palpable Extremeties Remarks LUE AVF, + thrill/bruit (Michelle Aldrich) Neurologic Neuro Exam: Alert, Awake, Oriented, Speech Clear, Moving All Extremities ( Michelle Aldrich) Psychiatric Psych Exam: Appropriate Responses (Michelle Aldrich) Assessment/Plan Discussed Condition With: Patient Assessment Summary: Anemia of CKD, Hypertension, End Stage Renal Disease Problem List: (1) End stage renal disease on dialysis Plan: Dialysis today and -- no acute renal concerns no dietary protein restriction Medications should be adjusted for ESRD. Avoid gadolinium. (2) Anemia Plan: GIB as He was using Motrin and ASA at home s/p EGD/colonoscopy, results pending no evidence of iron deficiency Hb stable Epogen with HD (3) HTN (hypertension) Plan: BP stable Continue on home medication regimen (Michelle Aldrich) Plan patient was seen and examined. s/p EGD and colonoscopy. He was advised to stop taking NSAIDs. He can be discharged if cleared by GI (Kevin Watkins MD) Problem Qualifiers (1) Anemia: Qualified Code: D64.9 - Anemia, unspecified type Michelle Aldrich Nov 04, 2016 11:19 Kevin Watkins MD Nov 04, 2016 14:27
[2016-11-04 12:00] VITALS: BP 163/78; PULSE 58; RESP 20; TEMP 98.1; O2SAT 95
[2016-11-04] MEDS ORDERED: FERR325T PO (16:29)
[2016-11-05] MEDS ORDERED: FUROSEMIDE 80 MG TAB PO SCH (09:00)
== END 2016-11-04 19:13 | disposition home health service (06) | DRG 377 ==
LOC: NEPC 06:48 → NEDA 09:34 → N07B 14:00
PROVIDERS: ADMIT Hospitalist; ATTEND Hospitalist
PROC: 30233N1 Transfusion of Nonautologous Red Blood Cells into Peripheral Vein, Percutaneous Approach (ICD-10-PCS; principal; 2016-11-01)
PROC: 5A1D60Z (ICD-10-PCS; 2016-11-02)
PROC: 0DJD8ZZ Inspection of Lower Intestinal Tract, Via Natural or Artificial Opening Endoscopic (ICD-10-PCS; 2016-11-03)
PROC: 0DB68ZX Excision of Stomach, Via Natural or Artificial Opening Endoscopic, Diagnostic (ICD-10-PCS; 2016-11-03)
DX: K57.31 Diverticulosis of large intestine without perforation or abscess with bleeding (principal); N18.6 End stage renal disease; I13.2 Hypertensive heart and chronic kidney disease with heart failure and with stage 5 chronic kidney disease, or end stage renal disease; E11.22 Type 2 diabetes mellitus with diabetic chronic kidney disease; J44.9 Chronic obstructive pulmonary disease, unspecified; R63.0 Anorexia; D50.0 Iron deficiency anemia secondary to blood loss (chronic); D63.1 Anemia in chronic kidney disease; R63.4 Abnormal weight loss; J45.909 Unspecified asthma, uncomplicated; I50.9 Heart failure, unspecified; E78.5 Hyperlipidemia, unspecified; K29.70 Gastritis, unspecified, without bleeding; G89.29 Other chronic pain; M25.512 Pain in left shoulder; Z68.21 Body mass index [BMI] 21.0-21.9, adult; Z83.3 Family history of diabetes mellitus; Z84.1 Family history of disorders of kidney and ureter; Z99.2 Dependence on renal dialysis
CPT/HCPCS: 36430; 80048; 80053; 81001; 82306; 82550; 82552; 83540; 83550; 83735; 83970; 84484; 85014; 85018; 85025; 85610; 86850; 86900; 86901; 86920; 88305; 88312; 90935; 93005; 96374; C9113; J1940; J2150; J2405; J7030; J7050; J7120; P9016; P9047; Q4081

== ENCOUNTER 2016-11-11 22:45 | Inpatient (IN) | payer OTHER, MEDICARE ==
[~2016-11-11] VITALS: Ht 188 cm; Wt 100.0 kg
[~2016-11-11 22:45] MED LIST changes: +AMLO5 PO; -AMLO5TAB22 PO; -B12-1CHW CHEW; -CALC667T PO; -CHOL50006 PO; -CITA-48 PO; +COLA100C3 PO; +D 50CAP; +D-50TAB PO; -DOXA1 PO; +DOXA4TAB3 PO; +FERR325T PO; +FURO1TAB61 PO; -LASI80TA PO; -LISI-363 PO; +LISI-515 PO; +METO25TA3 PO; -METO50TA PO; +NORC5TAB PO; +PHOS667C5 PO; +PROT40TA PO; -SIMV20 PO; +ZOCO20TA PO
[2016-11-11 22:50] VITALS: BP 162/102; PULSE 104; RESP 24; TEMP 98.6; O2SAT 88
[2016-11-11 23:03] VITALS: BP 133/94; PULSE 72; RESP 18; TEMP 98.4; O2SAT 93
[2016-11-11 23:12] VITALS: PULSE 68; RESP 20
[2016-11-11] MEDS ORDERED: SODIUM CHLORIDE 0.9% FLUSH 5 ML FLUSH IVF PRN (23:15)
[2016-11-11 23:30] LABS: AUTOMATED NEUTROPHIL # 4.5 TH/MM3 (1.8-7.7); BASOPHIL # 0.1 TH/MM3 (0-0.2); BASOPHIL % 0.9 % (0.0-2.0); EOSINOPHIL # 0.1 TH/MM3 (0-0.4); EOSINOPHIL % 1.7 % (0.0-4.0); HEMATOCRIT 30.4 % (39.0-51.0); HEMO FLAGS DIFF FINAL; LYMPH % 11.7 % (9.0-44.0); LYMPHOCYTE # 0.7 TH/MM3 (1.0-4.8); MEAN CELL VOLUME 87.2 FL (80.0-100.0); MEAN CORPUSCULAR HEMOGLOBIN 28.4 PG (27.0-34.0); MEAN CORPUSCULAR HGB CONC 32.5 % (32.0-36.0); MONO % 14.8 % (0.0-8.0); NEUT % 70.9 % (16.0-70.0); PLATELET COUNT 222 TH/MM3 (150-450); RED BLOOD COUNT 3.48 MIL/MM3 (4.50-5.90); RED CELL DISTRIBUTION WIDTH 17.8 % (11.6-17.2); WHITE BLOOD COUNT 6.3 TH/MM3 (4.0-11.0)
[2016-11-11 23:38] VITALS: O2SAT 97
[2016-11-11 23:38] LABS: APTT (PATIENT) 26.6 SEC (24.3-30.1); PROTHROMBIN TIME - PATIENT 10.7 SEC (9.8-11.6)
[2016-11-11 23:54] LABS: ANION GAP 8 MEQ/L (5-15); BICARBONATE 27.5 MEQ/L (21.0-32.0); BLOOD UREA NITROGEN 54 MG/DL (7-18); CHLORIDE 105 MEQ/L (98-107); CREATINE KINASE 121 U/L (39-308); GLOMERULAR FILTRATION RATE 6 ML/MIN (>89); SODIUM (NA) 140 MEQ/L (136-145)
[2016-11-11 23:55] LABS: POTASSIUM 5.7 MEQ/L (3.5-5.1)
[2016-11-12] VITALS (11 sets, daily range): BP systolic 171–207; BP diastolic 81–101; PULSE 52–69; RESP 16–20; TEMP 98.3–98.6; O2SAT 2–99
--- NOTE | 2016-11-12 00:14 | RADRPT ---
EXAM DATE/TIME: 11/11/2016 23:32 [facility] COMPARISON: CHEST SINGLE AP, August 07, 2015, 10:24. INDICATIONS : Short of breath. MEDICAL HISTORY : Chronic obstructive pulmonary disease. SURGICAL HISTORY : None. ENCOUNTER: Initial ACUITY: 1 day PAIN SCORE: 0/10 LOCATION: Bilateral chest FINDINGS: A single view of the chest demonstrates bibasilar opacities greater in the right lower lobe. Heart mi ldly enlarged. Slight elevation left hemidiaphragm again seen. The cardiomediastinal contours are unr emarkable. Osseous structures are intact. CONCLUSION: Bibasilar opacities greater in the right lower lobe. Cj Leavitt MD on November 12, 2016 at 0:11 Board Certified Radiologist. This report was verified electronically.
--- NOTE | 2016-11-12 00:17 | PD ---
HPI Chief Complaint: Respiratory Distress Time Seen by Provider: 23:02 Travel History International Travel<30 days: No Contact w/Intl Traveler<30days: No Traveled to known affect area: No History of Present Illness HPI 71yo M with PMH of ESRD on HD, COPD, HTN presents to the ED with sob today. Pt had hemodialysis today and states he felt sob afterwards. Denies any chest pain , n/v, abdominal pain, fever, cough, focal numbness or weakness. Pt was recently admitted for GIB/rectal bleed with symptomatic anemia s/p 2 units of PRBC. Pt had EGD and colonoscopy that showed gastritis and diverticular bleed. When patient's arrived, she provided more information and states that his hemodialysis was stopped 45 minutes early because he was very hypertensive with blood pressure systolic in the 200s. PFSH Past Medical History Arthritis: No Asthma: Yes Blood Disorders: No Anxiety: No Depression: No Heart Rhythm Problems: No Cancer: No Cardiovascular Problems: Yes (HTN) High Cholesterol: Yes Chemotherapy: No Chest Pain: No Congestive Heart Failure: Yes COPD: Yes Cerebrovascular Accident: No Diabetes: Yes (NOT CURRENTLY ON MEDS ) Patient Takes Glucophage: No Dialysis: Yes (HEMODIALYSIS ON M,W,F ) Diminished Hearing: No Endocrine: Yes Gastrointestinal Disorders: Yes GERD: No Genitourinary: Yes Headaches: No Hepatitis: No Hiatal Hernia: No Hypertension: Yes Immune Disorder: No Implanted Vascular Access Dvce: No Kidney Stones: No Musculoskeletal: No Neurologic: No Psychiatric: No Reproductive: No Respiratory: Yes Migraines: No Radiation Therapy: No Renal Failure: Yes Seizures: No Sickle Cell Disease: No Sleep Apnea: No Thyroid Disease: No Ulcer: No Tetanus Vaccination: Unknown Past Surgical History AICD: No Arteriovenous Shunt: Yes (L ARM ) Cardiac Surgery: No Ear Surgery: No Endocrine Surgery: No Eye Surgery: No Genitourinary Surgery: No Gynecologic Surgery: No Insulin Pump: No Joint Replacement: No Neurologic Surgery: No Oral Surgery: No Pacemaker: No Thoracic Surgery: No Other Surgery: Yes (FISTULA L ARM ) Social History Alcohol Use: No Tobacco Use: No Substance Use: No Allergies-Medications (Allergen,Severity, Reaction): Coded Allergies: No Known Allergies (Verified , 11/11/16) Reported Meds & Prescriptions Reported Meds & Active Scripts Active Ferrous Sulfate 325 Mg Tab 325 Mg PO DAILY Protonix (Pantoprazole Sodium) 40 Mg Tab 40 Mg PO DAILY Colace (Docusate Sodium) 100 Mg Cap 100 Mg PO BID Metoprolol Tartrate 25 Mg Tab 25 Mg PO Q12HR [place] (Hydrocodone-Acetaminophen) 5-325 mg Tab 1 Tab PO Q4H PRN Reported Lasix (Furosemide) 80 Mg Tab 80 Mg PO DAILY Lisinopril 20 Mg Tab 20 Mg PO DAILY Zocor (Simvastatin) 20 Mg Tab 20 Mg PO HS Doxazosin (Doxazosin Mesylate) 4 Mg Tab 4 Mg PO DAILY D-5000 (Cholecalciferol) 5,000 Unit Tab Tab PO DAILY Phoslo (Calcium Acetate (Phosphate Binder)) 667 Mg Cap 1,334 Mg PO TID Norvasc (Amlodipine Besylate) 5 Mg Tab 5 Mg PO DAILY Review of Systems Except as stated in HPI: all other systems reviewed are Neg Physical Exam Narrative GENERAL: 71yo M in mild distress. SKIN: Warm and dry. HEAD: Atraumatic. Normocephalic. EYES: Pupils equal and round. No scleral icterus. No injection or drainage. ENT: No nasal bleeding or discharge. Mucous membranes pink and moist. NECK: Trachea midline. No JVD. CARDIOVASCULAR: Regular rate and rhythm. No murmur appreciated. RESPIRATORY: + accessory muscle use. Crackles bilateral lower lung neri. Hypoxic at 88% on RA. GASTROINTESTINAL: Abdomen soft, non-tender, nondistended. Hepatic and splenic margins not palpable. MUSCULOSKELETAL: No obvious deformities. No clubbing. No cyanosis. No edema. NEUROLOGICAL: Awake and alert. No obvious cranial nerve deficits. Motor grossly within normal limits. Normal speech. PSYCHIATRIC: Appropriate mood and affect; insight and judgment normal. Data Data Last Documented VS Vital Signs Date Time Temp Pulse Resp B/P Pulse Ox O2 Delivery O2 Flow Rate FiO2 11/12/16 00:30 64 18 207/101 97 Nasal Cannula 3 11/11/16 23:03 98.4 Orders Complete Blood Count With Diff (11/11/16 23:08) Basic Metabolic Panel (Bmp) (11/11/16 23:08) Act Partial Throm Time (Ptt) (11/11/16 23:08) Prothrombin Time / Inr (Pt) (11/11/16 23:08) Ckmb (Isoenzyme) Profile (11/11/16 23:08) Troponin I (11/11/16 23:08) Iv Access Insert/Monitor (11/11/16 23:08) Electrocardiogram (11/11/16 23:08) Ecg Monitoring (11/11/16 23:08) Oximetry (11/11/16 23:08) Oxygen Administration (11/11/16 23:08) Chest, Single Ap (11/11/16 23:08) Sodium Chloride 0.9% Flush (Ns Flush) (11/11/16 23:15) CKMB (11/11/16 23:15) CKMB% (11/11/16 23:15) Admit Order (Ed Use Only) (11/12/16 00:46) Labs Laboratory Tests Test 11/11/16 23:15 Prothrombin Time 10.7 SEC Prothromb Time International 1.0 RATIO Ratio Activated Partial 26.6 SEC Thromboplast Time White Blood Count 6.3 TH/MM3 Red Blood Count 3.48 MIL/MM3 Hemoglobin 9.9 GM/DL Hematocrit 30.4 % Mean Corpuscular Volume 87.2 FL Mean Corpuscular Hemoglobin 28.4 PG Mean Corpuscular Hemoglobin 32.5 % Concent Red Cell Distribution Width 17.8 % Platelet Count 222 TH/MM3 Mean Platelet Volume 7.9 FL Neutrophils (%) (Auto) 70.9 % Lymphocytes (%) (Auto) 11.7 % Monocytes (%) (Auto) 14.8 % Eosinophils (%) (Auto) 1.7 % Basophils (%) (Auto) 0.9 % Neutrophils # (Auto) 4.5 TH/MM3 Lymphocytes # (Auto) 0.7 TH/MM3 Monocytes # (Auto) 0.9 TH/MM3 Eosinophils # (Auto) 0.1 TH/MM3 Basophils # (Auto) 0.1 TH/MM3 CBC Comment DIFF FINAL Differential Comment Sodium Level 140 MEQ/L Potassium Level 5.7 MEQ/L Chloride Level 105 MEQ/L Carbon Dioxide Level 27.5 MEQ/L Anion Gap 8 MEQ/L Blood Urea Nitrogen 54 MG/DL Creatinine 10.59 MG/DL Estimat Glomerular Filtration 6 ML/MIN Rate Random Glucose 111 MG/DL Calcium Level 9.5 MG/DL Total Creatine Kinase 121 U/L Creatine Kinase MB 3.6 NG/ML Troponin I 0.07 NG/ML MDM Medical Decision Making Medical Screen Exam Complete: Yes Emergency Medical Condition: Yes Interpretation(s) EKG: NSR 70bpm. RBBB. PVC. Differential Diagnosis PNA vs. fluid overload vs. COPD exacerbation vs. ACS vs. symptomatic anemia Narrative Course 71yo M with ESRD on HD, last HD today here with sob. Pt initially hypoxic at 88 % on RA. O2 sat improved to 94% on 4L NC. Labs reviewed, no leukocytosis. H/ H low but stable at 9.9/30.4 which is his baseline compared to last H/H 11/04/15. Creatinine elevated at 10.59 which is his baseline. K: 5.7, which is slightly hemolyzed. Troponin mildly elevated at 0.07. CXR showed bibasilar opacities greater in right lower lobe. BP initially not elevated but repeat was 207/101 so hydralazine 10mg IV given. Pt is not in distress and saturating at 97% on 3L NC. Pt does not have oxygen at home. Discussed with [facility] hospitalist and admitted to Dr. Shankar. Diagnosis Primary Impression: Fluid overload Qualified Code: E87.70 - Hypervolemia, unspecified hypervolemia type Additional Impression: SOB (shortness of breath) Admitting Information Admitting Physician Requests: Admit Trish Lynn DO Nov 12, 2016 00:17
[2016-11-12 00:19] LABS: CKMB 3.6 NG/ML (0.5-3.6)
[2016-11-12] MEDS ORDERED: SODIUM CHLOR 0.9% 1000 ML INJ 1,000 ML IV ONE (00:45)
[2016-11-12] MEDS ORDERED: SENNOSIDES 8.6 MG TAB PO PRN (01:00)
[2016-11-12] MEDS ORDERED: ACETAMINOPHEN 325 MG TAB PO PRN (01:00)
[2016-11-12] MEDS ORDERED: hydrALAZINE HCL 20 MG/ML VIAL IV PUSH ONE (01:00)
[2016-11-12] MEDS ORDERED: NALOXONE HCL 0.4 MG/ML AMP IV PRN (01:00)
[2016-11-12] MEDS ORDERED: SODIUM CHLORIDE 0.9% FLUSH 5 ML FLUSH FLUSH PRN (01:00)
[2016-11-12] MEDS ORDERED: ONDANSETRON HCL 4 MG/2 ML VIAL IVP PRN (01:00)
[2016-11-12] MEDS ORDERED: cloNIDine HCL 0.1 MG TAB PO PRN ×2 (01:00→08:30)
[2016-11-12] MEDS: HEPARIN SODIUM - SQ 10,000 UNITS/ML VIAL SQ SCH ×2 (01:09→12:13)
[2016-11-12] MEDS: SODIUM CHLORIDE 0.9% FLUSH 5 ML FLUSH FLUSH SCH ×2 (08:14→20:55)
[2016-11-12] MEDS ORDERED: SODIUM CHLOR 0.9% 1000 ML INJ 1,000 ML IV PRN ×3 (08:22)
[2016-11-12] MEDS ORDERED: EPOETIN ALFA 10,000 UNITS/ML VIAL IV PRN (08:30)
[2016-11-12] MEDS ORDERED: MANNITOL 12.5 GM/50 ML VIAL IV PRN (08:30)
[2016-11-12] MEDS ORDERED: SODIUM CHLORIDE 0.9% FLUSH 5 ML FLUSH IVF PRN (08:30)
[2016-11-12] MEDS ORDERED: NITROGLYCERIN 0.4 MG SL 25 TABS/BTL SL PRN (08:30)
[2016-11-12] MEDS ORDERED: GENTAMICIN SULFATE (DIALYSIS USE ONLY) 20 MG/2 ML VIAL IV PRN (08:30)
[2016-11-12] MEDS ORDERED: HEPARIN SODIUM - IV 10,000 UNITS/10 ML VIAL IVF PRN (08:30)
[2016-11-12] MEDS ORDERED: HEPARIN SODIUM - IV 10,000 UNITS/10 ML VIAL PRN (08:30)
[2016-11-12] MEDS ORDERED: ONDANSETRON HCL 4 MG/2 ML VIAL IV PRN (08:30)
[2016-11-12] MEDS ORDERED: diphenhydrAMINE HCL 25 MG CAP PO PRN (08:30)
[2016-11-12] MEDS ORDERED: ALBUMIN HUMAN 25% 25 GM/100 ML BAGP IV PRN (08:30)
[2016-11-12] MEDS ORDERED: GELATIN 12 MM/7 MM FOAM TOP PRN (08:30)
[2016-11-12] MEDS ORDERED: RESP: ALBUTEROL 2.5 MG/IPRATROPIUM 0.5 MG NEB (PRN) NEB (08:45)
[2016-11-12] MEDS ORDERED: amLODIPine BESYLATE 5 MG TAB PO SCH (09:00)
[2016-11-12] MEDS ORDERED: METOPROLOL TARTRATE 25 MG TAB PO SCH (09:00)
--- NOTE | 2016-11-12 10:18 | HHI.HP ---
[facility] Ena Klein Admission Diagnosis Hypoxemia Diagnoses: Chief Complaint: SOB (Jolene Cruz) Travel History International Travel<30 Days: No Contact w/Intl Traveler <30 Da: No Traveled to Known Affected Are: No (Jolene Cruz) History of Present Illness Patient is a 71 yo male, with PMH of ESRD on HD, HTN, DM, COPD, recent admission for GI bleed requiring EGD/colonoscopy and PRBC transfusion. Patient was sent from hemodialysis center, he was noted short of breath, was agitated. Patient is a poor historian, information is obtained from the medical record and patient himself however he's requesting that I speak to his . Patient indicates he has been short of breath. Apparently his treatment was stopped 45 minutes early. He had an appointment to see a library services dean as outpatient, patient is not able to recall the name. Patient was also noted hypertensive with blood pressure in the 200s. Indicates he has had shortness of breath, no chest pain, has had chills, no sputum, has noted increased wheezing. Does not use any oxygen at home. He quit smoking many years ago. Additional he is complaining of constipation, has not had a bowel movement in 4- 5 days. During emergency room evaluation, patient was noted hypoxic, sats 88% on room air. Sats improved to 94% on 4 L. H&H is slow but stable, hemoglobin 9.9 hematocrit 30.4. Patient was recently admitted for GI bleed. He was noted hypokalemic with potassium of 5.7. Troponin was mildly elevated at 0.07. Chest x-ray showed bibasilar opacities greater in right lower lobe. Blood pressure was noted elevated to 207/101, Hydralazine 10 mg was given. Patient is not evaluated in the emergency room, mildly short of breath, denies any chest pain. Blood pressure remains elevated. There is no family at bedside. Patient is admitted for further evaluation and treatment. (Jolene Cruz) Review of Systems ROS Limitations: Poor Historian Constitutional: COMPLAINS OF: Chills Respiratory: COMPLAINS OF: Wheezing, Shortness of breath Gastrointestinal: COMPLAINS OF: Constipation (Jolene Cruz) Past Family Social History Past Medical History ESRD on HD Hypertension COPD Hx GI bleed, thought from ASA use Anemia CHF HLD DM that is now diet controlled. Recent admission November 2016 for GI bleed, requiring EGD colonoscopy and blood transfusion Past Surgical History AVF s/p EGD/Colonoscopy patient with diverticulosis and antral gastritis. Biopsy of antral region pending 11/03/2016 Reported Medications Reported Meds & Active Scripts Active Ferrous Sulfate 325 Mg Tab 325 Mg PO DAILY Protonix (Pantoprazole Sodium) 40 Mg Tab 40 Mg PO DAILY Colace (Docusate Sodium) 100 Mg Cap 100 Mg PO BID Metoprolol Tartrate 25 Mg Tab 25 Mg PO Q12HR [place] (Hydrocodone-Acetaminophen) 5-325 mg Tab 1 Tab PO Q4H PRN Reported Lasix (Furosemide) 80 Mg Tab 80 Mg PO DAILY Lisinopril 20 Mg Tab 20 Mg PO DAILY Zocor (Simvastatin) 20 Mg Tab 20 Mg PO HS Doxazosin (Doxazosin Mesylate) 4 Mg Tab 4 Mg PO DAILY D-5000 (Cholecalciferol) 5,000 Unit Tab Tab PO DAILY Phoslo (Calcium Acetate (Phosphate Binder)) 667 Mg Cap 1,334 Mg PO TID Norvasc (Amlodipine Besylate) 5 Mg Tab 5 Mg PO DAILY (Jolene Cruz) Allergies: Coded Allergies: No Known Allergies (Verified , 11/11/16) Active Ordered Medications Inpatient Medications Acetaminophen (Tylenol) 650 mg UNSCH PRN PO for headach, pain, temp > 101F; Start 11/12/16 at 08:30 Albumin Human (Albumin 25% Inj) 25 gm UNSCH PRN IV WITH DIALYSIS; Start at 08:30 Albuterol/ Ipratropium (Duoneb Neb) 1 ampule Q4HR NEB PRN NEB WHEEZING; Start 11/12/16 at 08:45 Amlodipine Besylate (Norvasc) 5 mg DAILY PO Last administered on 11/12/16t 08: 14; Start 11/12/16 at 09:00 Clonidine (Catapres) 0.1 mg UNSCH PRN PO for BP > 180/100 X 2 readings; Start 11/12/16 at 08:30 Diphenhydramine HCl (Benadryl) 25 mg UNSCH PRN PO for hives/itching/anaphylaxis ; Start 11/12/16 at 08:30 Epoetin Tariq (Epogen Inj) 10,000 units UNSCH PRN IV WITH DIALYSIS; Start at 08:30; Stop 11/12/16 at 08:41; Status DC Gelatin (Gelfoam 12 Mm/7 Mm Top) 1 foam UNSCH PRN TOP SEE LABEL COMMENTS; Start 11/12/16 at 08:30 Gentamicin Sulfate (Gentamicin (Dialysis) Inj) 20 mg UNSCH PRN IV WITH DIALYSIS ; Start 11/12/16 at 08:30 Heparin Sodium (Porcine) (Heparin Inj) UNSCH PRN .XX WITH DIALYSIS; Start 08/19 at 08:30 Heparin Sodium (Porcine) 8000 units 8,000 units UNSCH PRN IVF WITH DIALYSIS; Start 11/12/16 at 08:30 Hydralazine HCl (Apresoline Inj) 5 mg ONCE ONCE IV PUSH Last administered on 01:01; Start 11/12/16 at 01:00; Stop 11/12/16 at 01:01; Status DC IV Flush (NS Flush) 5 ml UNSCH PRN IVF WITH DIALYSIS; Start 11/12/16 at 08:30 Mannitol (Mannitol Inj) 12.5 gm UNSCH PRN IV WITH DIALYSIS; Start 11/12/16 at 08:30 Metoprolol Tartrate (Lopressor) 25 mg Q12HR PO Last administered on 11/12/16t 08:14; Start 11/12/16 at 09:00 Naloxone HCl (Narcan Inj) 0.4 mg UNSCH PRN IV SEE LABEL COMMENTS; Start at 01:00 Nitroglycerin (Nitrostat Sl) 0.4 mg UNSCH PRN SL CHEST PAIN; Start 11/12/16 at 08:30 Ondansetron HCl (Zofran Inj) 4 mg UNSCH PRN IV WITH DIALYSIS; Start 11/12/16 at 08:30 Sennosides (Senokot) 17.2 mg Q12H PRN PO CONSTIPATION; Start 11/12/16 at 01:00 Sodium Chloride (NS 1000 ml Inj) 1,000 ml @ 0 mls/hr Q0M PRN IV WITH DIALYSIS; Start 11/12/16 at 08:22 Family History Sister was on dialysis Social History Denies tobacco use Denies ETOH or illicit drug use , 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 (Jolene Cruz) Physical Exam Vital Signs Vital Signs Date Time Temp Pulse Resp B/P Pulse Ox O2 Delivery O2 Flow Rate FiO2 11/12/16 08:09 98.6 69 16 203/95 94 11/12/16 06:06 67 20 197/95 95 Nasal Cannula 11/12/16 05:19 64 20 187/87 97 Nasal Cannula 11/12/16 01:57 67 18 193/95 99 Nasal Cannula 3 11/12/16 01:12 67 18 205/99 94 Room Air 11/12/16 00:30 64 18 207/101 97 Nasal Cannula 3 11/11/16 23:38 97 Nasal Cannula 3.00 11/11/16 23:12 94 Nasal Cannula 4 11/11/16 23:12 68 20 Nasal Cannula 4 11/11/16 23:06 71 22 Nasal Cannula 4 11/11/16 23:03 98.4 72 18 133/94 93 11/11/16 22:50 98.6 104 24 162/102 88 Room Air Physical Exam GENERAL: This is a well-nourished, well-developed patient, in no apparent distress. SKIN: No rashes, ecchymoses or lesions. Cool and dry. HEAD: Atraumatic. Normocephalic. No temporal or scalp tenderness. EYES: Pupils equal round and reactive. Extraocular motions intact. No scleral icterus. No injection or drainage. ENT: Nose without bleeding, purulent drainage or septal hematoma. Throat without erythema, tonsillar hypertrophy or exudate. Uvula midline. Airway patent. NECK: Trachea midline. No JVD or lymphadenopathy. Supple, nontender, no meningeal signs. CARDIOVASCULAR: Regular rate and rhythm without murmurs, gallops, or rubs. Bilateral lower extremities without clubbing, no cyanosis, no edema. Pedal pulses +1 bilateral. Left arm with AV fistula, positive bruit and thrill. RESPIRATORY: Noted with bibasilar Rales, mild expiratory wheezing. GASTROINTESTINAL: Abdomen soft, non-tender, nondistended. No hepato-splenomegaly , or palpable masses. No guarding. MUSCULOSKELETAL: Extremities without clubbing, cyanosis, or edema. No joint tenderness, effusion, or edema noted. No calf tenderness. Negative Homans sign bilaterally. NEUROLOGICAL: Awake, alert oriented 2. No focal deficits. Poor historian. Laboratory Laboratory Tests Test 11/11/16 11/12/16 11/12/16 23:15 00:55 07:31 Prothrombin Time 10.7 Prothromb Time International 1.0 Ratio Activated Partial 26.6 Thromboplast Time White Blood Count 6.3 Red Blood Count 3.48 Hemoglobin 9.9 Hematocrit 30.4 Mean Corpuscular Volume 87.2 Mean Corpuscular Hemoglobin 28.4 Mean Corpuscular Hemoglobin 32.5 Concent Red Cell Distribution Width 17.8 Platelet Count 222 Mean Platelet Volume 7.9 Neutrophils (%) (Auto) 70.9 Lymphocytes (%) (Auto) 11.7 Monocytes (%) (Auto) 14.8 Eosinophils (%) (Auto) 1.7 Basophils (%) (Auto) 0.9 Neutrophils # (Auto) 4.5 Lymphocytes # (Auto) 0.7 Monocytes # (Auto) 0.9 Eosinophils # (Auto) 0.1 Basophils # (Auto) 0.1 CBC Comment DIFF FINAL Differential Comment Sodium Level 140 Potassium Level 5.7 Chloride Level 105 Carbon Dioxide Level 27.5 Anion Gap 8 Blood Urea Nitrogen 54 Creatinine 10.59 Estimat Glomerular Filtration 6 Rate Random Glucose 111 Calcium Level 9.5 Total Creatine Kinase 121 Creatine Kinase MB 3.6 Troponin I 0.07 0.07 0.06 (Jolene Cruz) Result Diagram: 11/11/16231411/11/162314 Imaging Last Impressions Chest X-Ray 11/11/162307 Signed Impressions: Service Date/Time: Friday, November 11, 2016 23:32 - CONCLUSION: Bibasilar opacities greater in the right lower lobe. Cj Leavitt MD (Jolene Cruz) Assessment and Plan Problem List: (1) Hypoxia (2) Fluid overload (3) COPD with exacerbation (4) Hyperkalemia (5) Uncontrolled hypertension (6) ESRD on dialysis (7) HTN (hypertension) (8) DM (diabetes mellitus) (9) History of GI bleed (10) Anemia Assessment and Plan Admit to Dr. Shankar 71-year-old male with past medical history end-stage renal disease on HD, hypertension, COPD, presented to emergency room with shortness of breath. Patient was SOB, hypoxic, blood pressure was uncontrolled, chest x-ray with findings of bibasilar opacities greater in the right lower lobe. Patient admitted for pulmonary edema with uncontrolled HTN, COPD exacerbation. -Continue with supplemental oxygen to keep sats greater than 92 DuoNeb's 4 times a day and when necessary Pulmonology consultation pending We will start empiric antibiotics Uncontrolled hypertension -Continue hydralazine 10 mg IV push every 4 when necessary -Nephrology has adjusted antihypertensive agents End-stage renal disease, noted hyperkalemic Consul nephrology Continue with hemodialysis per schedule -Monitor electrolytes -Continuous cardiac telemetry Anemia, recently admitted for GI bleed requiring packed PRBCs Monitor H&H Avoid anticoagulation -Protonix 40 mg by mouth daily Home medications reviewed, initiated as indicated SCDs for DVT prophylaxis Protonix for GI prophylaxis Plan of care has been discussed with the patient, attending and registered nurse. Further management of the patient will be dependent on the hospital course This patient was seen by myself and Dr. Shankar, this H&P is written on his behalf (Jolene Cruz) Assessment and Plan pt seen and examined as above this am chart was reviwed Wyle labs rad data and notes were reviwed plan of care dw cardiology nurse dw pt (Dionne Shankar MD) Problem Qualifiers (1) Fluid overload: Qualified Code: E87.70 - Hypervolemia, unspecified hypervolemia type (2) HTN (hypertension): Qualified Code: I10 - Essential hypertension (3) DM (diabetes mellitus): Qualified Code: E11.22 - Type 2 diabetes mellitus with chronic kidney disease on chronic dialysis, unspecified prison insulin use status (4) Anemia: Qualified Code: D64.9 - Anemia, unspecified type Jolene Cruz Nov 12, 2016 10:18 Dionne Shankar MD Nov 12, 2016 22:22
[2016-11-12] MEDS: RESP: ALBUTEROL 2.5 MG/IPRATROPIUM 0.5 MG NEB (SCH) NEB ×3 (10:52→20:00)
--- NOTE | 2016-11-12 11:28 | PD.CONS ---
HPI Service Nephrology Consult Requested By Reason for Consult ESRD on HD Primary Care Physician Ena Klein History of Present Illness This is out 71 y/o dialysis patient. He was brought in from the dialysis clinic yesterday for shortness of breath and high blood pressure. His treatment was stopped 45 min early. On exam he is extremely agitated, yelling at nurses station and wanting to leave the hospital. He is very dyspneic, I assisted him back to bed to apply oxygen. His K is elevated per lab work. He has a fistula. We were consulted for dialysis management. (Michelle Aldrich) Review of Systems Respiratory: COMPLAINS OF: Shortness of breath Cardiovascular: DENIES: Chest pain, Lower Extremity Edema Gastrointestinal: DENIES: Abdominal pain Psychiatric: COMPLAINS OF: Anxiety, Mood changes (Michelle Aldrich) Past Family Social History Allergies: Coded Allergies: No Known Allergies (Verified , 11/11/16) Past Medical History ESRD on HD Hypertension COPD Hx GI bleed, thought from ASA use Anemia CHF HLD DM that is now diet controlled. Past Surgical History AVF Reported Medications Ferrous Sulfate 325 Mg Tab 325 Mg PO DAILY Protonix (Pantoprazole Sodium) 40 Mg Tab 40 Mg PO DAILY Colace (Docusate Sodium) 100 Mg Cap 100 Mg PO BID Metoprolol Tartrate 25 Mg Tab 25 Mg PO Q12HR [place] (Hydrocodone-Acetaminophen) 5-325 mg Tab 1 Tab PO Q4H PRN Reported Lasix (Furosemide) 80 Mg Tab 80 Mg PO DAILY Lisinopril 20 Mg Tab 20 Mg PO DAILY Zocor (Simvastatin) 20 Mg Tab 20 Mg PO HS Doxazosin (Doxazosin Mesylate) 4 Mg Tab 4 Mg PO DAILY D-5000 (Cholecalciferol) 5,000 Unit Tab Tab PO DAILY Phoslo (Calcium Acetate (Phosphate Binder)) 667 Mg Cap 1,334 Mg PO TID Norvasc (Amlodipine Besylate) 5 Mg Tab 5 Mg PO DAILY Active Ordered Medications Current Medications Medications (Trade) Dose Ordered Sig/Luis Route Start Time Stop Time Status Last Admin (NS Flush) 2 ml UNSCH PRN FLUSH 11/12/16 01:00 (NS Flush) 2 ml BID FLUSH 11/12/16 09:00 11/12/16 08:14 (Tylenol) 650 mg Q4H PRN PO 11/12/16 01:00 (Zofran Inj) 4 mg Q6H PRN IVP 11/12/16 01:00 (Senokot) 17.2 mg Q12H PRN PO 11/12/16 01:00 (Heparin Inj) 5,000 units Q12H SQ 11/12/16 01:00 11/12/16 01:09 (Narcan Inj) 0.4 mg UNSCH PRN IV 11/12/16 01:00 (Lopressor) 25 mg Q12HR PO 11/12/16 09:00 11/12/16 08:14 (Catapres) 0.1 mg Q6H PRN PO 11/12/16 01:00 11/12/16 03:49 Amlodipine Besylate 5 mg 5 mg DAILY PO 11/12/16 09:00 11/12/16 08:14 (NS 1000 ml Inj) 1,000 ml @ 0 mls/hr Q0M PRN IV 11/12/16 08:22 Heparin Sodium (Porcine) 8000 units 8,000 units UNSCH PRN IVF 11/12/16 08:30 Sodium Chloride 1,000 ml @ 200 mls/hr Q5H PRN IV 11/12/16 08:22 (NS 1000 ml Inj) 1,000 ml @ 0 mls/hr Q0M PRN IV 11/12/16 08:22 (Mannitol Inj) 12.5 gm UNSCH PRN IV 11/12/16 08:30 (Albumin 25% Inj) 25 gm UNSCH PRN IV 11/12/16 08:30 (NS Flush) 5 ml UNSCH PRN IVF 11/12/16 08:30 (Heparin Inj) UNSCH PRN .XX 11/12/16 08:30 (Gentamicin (Dialysis) Inj) 20 mg UNSCH PRN IV 11/12/16 08:30 (Zofran Inj) 4 mg UNSCH PRN IV 11/12/16 08:30 (Tylenol) 650 mg UNSCH PRN PO 11/12/16 08:30 (Benadryl) 25 mg UNSCH PRN PO 11/12/16 08:30 (Nitrostat Sl) 0.4 mg UNSCH PRN SL 11/12/16 08:30 (Catapres) 0.1 mg UNSCH PRN PO 11/12/16 08:30 Gelatin 1 foam 1 foam UNSCH PRN TOP 11/12/16 08:30 (Levaquin 250 Mg Premix Inj) 50 ml @ 50 mls/hr Q48H IV 11/12/16 12:00 Family History Sister was on dialysis Social History Denies tobacco use Denies ETOH or illicit drug use , 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 (Michelle Aldrich) Physical Exam Vital Signs Vital Signs Date Time Temp Pulse Resp B/P Pulse Ox O2 Delivery O2 Flow Rate FiO2 11/12/16 10:59 96 Nasal Cannula 3.00 11/12/16 08:09 98.6 69 16 203/95 94 11/12/16 06:06 67 20 197/95 95 Nasal Cannula 11/12/16 05:19 64 20 187/87 97 Nasal Cannula 11/12/16 01:57 67 18 193/95 99 Nasal Cannula 3 11/12/16 01:12 67 18 205/99 94 Room Air 11/12/16 00:30 64 18 207/101 97 Nasal Cannula 3 11/11/16 23:38 97 Nasal Cannula 3.00 11/11/16 23:12 94 Nasal Cannula 4 11/11/16 23:12 68 20 Nasal Cannula 4 11/11/16 23:06 71 22 Nasal Cannula 4 11/11/16 23:03 98.4 72 18 133/94 93 11/11/16 22:50 98.6 104 24 162/102 88 Room Air Physical Exam Elderly AAM, anxious, awake and shouting tachypneic, expiratory wheezing S1, S2, no murmurs, he has been hypertensive Abd; flat, benign Ext: no edema Skin: intact AVF LUE, + thrill/bruit Laboratory Laboratory Tests Test 11/11/16 11/12/16 11/12/16 23:15 00:55 07:31 Prothrombin Time 10.7 Prothromb Time International 1.0 Ratio Activated Partial 26.6 Thromboplast Time White Blood Count 6.3 Red Blood Count 3.48 Hemoglobin 9.9 Hematocrit 30.4 Mean Corpuscular Volume 87.2 Mean Corpuscular Hemoglobin 28.4 Mean Corpuscular Hemoglobin 32.5 Concent Red Cell Distribution Width 17.8 Platelet Count 222 Mean Platelet Volume 7.9 Neutrophils (%) (Auto) 70.9 Lymphocytes (%) (Auto) 11.7 Monocytes (%) (Auto) 14.8 Eosinophils (%) (Auto) 1.7 Basophils (%) (Auto) 0.9 Neutrophils # (Auto) 4.5 Lymphocytes # (Auto) 0.7 Monocytes # (Auto) 0.9 Eosinophils # (Auto) 0.1 Basophils # (Auto) 0.1 CBC Comment DIFF FINAL Differential Comment Sodium Level 140 Potassium Level 5.7 Chloride Level 105 Carbon Dioxide Level 27.5 Anion Gap 8 Blood Urea Nitrogen 54 Creatinine 10.59 Estimat Glomerular Filtration 6 Rate Random Glucose 111 Calcium Level 9.5 Total Creatine Kinase 121 Creatine Kinase MB 3.6 Troponin I 0.07 0.07 0.06 (Michelle Aldrich) Result Diagram: 11/11/16231411/11/162314 Imaging Last 72 hours Impressions Chest X-Ray 11/11/162307 Signed Impressions: Service Date/Time: Friday, November 11, 2016 23:32 - CONCLUSION: Bibasilar opacities greater in the right lower lobe. 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 We will dialyze him today because of hyperkalemia , and possible fluid overload. Usually dialyzes MWF. BP is very high, I increased Amlodipine, added Losartan. Changed Metoprolol to Carvedilol. Patient requests pulmonary consult to assess COPD. (Kevin Watkins MD) Michelle Aldrich Nov 12, 2016 11:28 Kevin Watkins MD Nov 12, 2016 11:41
[2016-11-12] MEDS ORDERED: LEVOFLOXACIN 250 MG PREMIX INJ 50 ML IV SCH (12:00)
[2016-11-12] MEDS: LOSARTAN 25 MG TAB PO SCH (12:12)
[2016-11-12] MEDS: ACETAMINOPHEN 325 MG TAB PO PRN ×2 (12:17→18:19)
[2016-11-12 12:29] LABS: BICARBONATE 25.2 MEQ/L (21.0-32.0); POTASSIUM 5.3 MEQ/L (3.5-5.1)
--- NOTE | 2016-11-12 14:23 | EKG ---
Date Performed: 11/11/2016 Time Performed: 23:12:44 PTAGE: 71 years EKG: Sinus rhythm WITH OCCASIONAL VENTRICULAR PREMATURE COMPLEXES POSSIBLE LEFT ATRIAL ENLARGEMENT INDETERMINATE AXIS RIGHT BUNDLE BRANCH BLOCK prolonged corrected QT interval ABNORMAL ECG PREVIOUS TRACING : 11/01/2016 07.35 DOCTOR: Mik Zhao Interpretating Date/Time 11/12/2016 14:21:13
--- NOTE | 2016-11-12 14:23 | EKG ---
Date Performed: 11/12/2016 Time Performed: 06:02:13 PTAGE: 71 years EKG: Sinus rhythm WITH FREQUENT VENTRICULAR PREMATURE COMPLEXES RIGHT BUNDLE BRANCH BLOCK ABNORMAL ECG Compared to kevin or tracing no significant change PREVIOUS TRACING DOCTOR: Mik Zhao Interpretating Date/Time 11/12/2016 14:22:44
[2016-11-12] MEDS ORDERED: hydrALAZINE HCL 20 MG/ML VIAL IV PUSH PRN (14:30)
[2016-11-12] MEDS: CALCIUM ACETATE 667 MG CAP PO SCH (18:16)
[2016-11-12] MEDS: BUDESONIDE-FORMOTEROL 160/4.5 MCG INHALER INH SCH (20:55)
[2016-11-12] MEDS: CARVEDILOL 12.5 MG TAB PO SCH (20:56)
[2016-11-12] MEDS ORDERED: PRAVASTATIN SOD 40 MG TAB PO SCH (21:00)
[2016-11-13 00:11] VITALS: BP 144/68; PULSE 52; RESP 20; TEMP 98.5; O2SAT 93
[2016-11-13 05:19] VITALS: BP 142/62; PULSE 68; RESP 20; TEMP 98.2; O2SAT 93
--- NOTE | 2016-11-13 05:27 | MB ---
cc: IGOR CALIXTO DATE OF CONSULTATION 11/12/2016 REASON FOR CONSULTATION Respiratory distress and COPD. HISTORY OF PRESENT ILLNESS This is a 71-year-old man with a history of end-stage renal disease on dialysis, a history of diabetes and hypertension and chronic obstructive pulmonary disease who was admitted with shortness of breath and anxiety. The patient apparently was recently in the hospital with a severe GI bleed and had a colonoscopy and EGD done and received packed cell transfusions to get his hemoglobin above 8 grams. He has been on hemodialysis every other day and apparently his last treatment was cut short by 45 minutes and since he has been home he has been getting increasingly short of breath and had some wheezing and shortness of breath, but had no home oxygen and thus called [facility] and was brought to the hospital for evaluation. Upon arrival a chest x-ray was done which showed evidence of vascular congestion and small effusion. Hemoglobin was 9.9. The patient denied any chest pains, had no hemoptysis or GI bleed, was not able to give his complaints well since he seems quite weak and is a poor historian. PAST HISTORY Past history includes - 1. COPD. 2. Emphysema. 3. History of GI bleed. 4. Anemia and this was due to use of arthritis pills and antiinflammatories. 5. He has had CHF. 6. End-stage renal disease on hemodialysis. 7. History of diabetes mellitus. 8. He also had recent EGD and found to have gastritis. 9. He has had A-V fistula placed in his left forearm. MED LIST 1. Lasix 80 mg a day. 2. Metoprolol 25 mg b.i.d. 3. [place]lers 5/325 one p.r.n. 4. Zocor 20 mg at bedtime. 5. Doxazosin 4 mg a day. 6. Norvasc 5 mg daily. 7. PhosLo 667 mg t.i.d. ALLERGIES None listed. HABITS The patient was a former smoker for over 30 years and quit. No significant alcohol use. FAMILY HISTORY Significant for kidney disease. REVIEW OF SYSTEMS The patient has lost weight. He has dizziness, postnasal drip, cough, wheezing, chest congestion, epigastric distress. No nausea or vomiting. He has had a recent GI bleed which has resolved. He has joint pains in his extremities and anxiety attacks. PHYSICAL EXAMINATION General: This is a thinly built elderly man who is alert and pale, mildly dyspneic at rest. Vital Signs: Blood pressure is 180/90, pulse is 68, respirations 22, temperature is 98.5. HEENT: Head normocephalic. Pupils reactive and equal. Tongue is moist. Throat is mildly injected. Nasal mucosa edematous. Chest: Equal movements with decreased excursions. Diminished breath sounds at the bases with occasional wheezes bilaterally and crackles heard at the lung bases. Heart: The heart sounds are irregular, S1 and S2. No murmur, no S3. Abdomen: Soft, benign. No masses or organomegaly or tenderness. Bowel sounds active. Extremities: No edema. Peripheral pulses are diminished. There is an A-V fistula in the left forearm. Neuro: Reflexes are 1+. No gross motor deficits. Cranial nerves grossly intact. Rectal: Exam is deferred. Skin: No lesions. IMPRESSION 1. COPD with chronic bronchitis and emphysema. 2. Pulmonary edema with hypoxemia. 3. Hypertension, uncontrolled. 4. End-stage renal disease on hemodialysis. 5. Diabetes mellitus type 2. 6. History of GI bleed with severe anemia. PLAN 1. The patient will be maintained on O2 at 2 liters. 2. The patient also has a history of obstructive sleep apnea and he will bring his C-PAP mask here so it can be used at night. Otherwise he will be on O2 at 2 liters nasal cannula during the day. 3. His chest x-ray to be repeated in the a.m. 4. Dialysis was planned. 5. Nebulized DuoNeb solution added q.i.d. 6. Symbicort 160/4.5 two puffs b.i.d. Thank you Dr. Shankar for this consultation. MD WILL Seymour/ANTON /11:03 PM /5:14 AM
[2016-11-13 06:21] LABS: AUTOMATED NEUTROPHIL # 3.1 TH/MM3 (1.8-7.7); BASOPHIL # 0.1 TH/MM3 (0-0.2); BASOPHIL % 1.2 % (0.0-2.0); HEMATOCRIT 27.7 % (39.0-51.0); HEMO FLAGS DIFF FINAL; LYMPH % 10.9 % (9.0-44.0); LYMPHOCYTE # 0.4 TH/MM3 (1.0-4.8); MEAN CORPUSCULAR HEMOGLOBIN 29.3 PG (27.0-34.0); MONO % 13.1 % (0.0-8.0); NEUT % 73.8 % (16.0-70.0); PLATELET COUNT 217 TH/MM3 (150-450); RED BLOOD COUNT 3.22 MIL/MM3 (4.50-5.90); RED CELL DISTRIBUTION WIDTH 17.4 % (11.6-17.2); WHITE BLOOD COUNT 4.1 TH/MM3 (4.0-11.0)
[2016-11-13 06:53] LABS: ANION GAP 8 MEQ/L (5-15); BICARBONATE 30.2 MEQ/L (21.0-32.0); BLOOD UREA NITROGEN 47 MG/DL (7-18); CHLORIDE 102 MEQ/L (98-107); GLOMERULAR FILTRATION RATE 6 ML/MIN (>89); POTASSIUM 4.9 MEQ/L (3.5-5.1); SODIUM (NA) 140 MEQ/L (136-145); TRANSFERRIN IRON PROFILE 130 MG/DL (200-360)
[2016-11-13 07:49] VITALS: BP 200/95; PULSE 62; RESP 18; TEMP 98.2; O2SAT 95
[2016-11-13 07:58] VITALS: O2SAT 96
[2016-11-13] MEDS: RESP: ALBUTEROL 2.5 MG/IPRATROPIUM 0.5 MG NEB (SCH) NEB ×3 (07:58→17:09)
[2016-11-13] MEDS: CALCIUM ACETATE 667 MG CAP PO SCH ×2 (08:12→14:15)
[2016-11-13] MEDS: CARVEDILOL 12.5 MG TAB PO SCH (08:12)
[2016-11-13] MEDS: BUDESONIDE-FORMOTEROL 160/4.5 MCG INHALER INH SCH (08:13)
[2016-11-13] MEDS: LOSARTAN 25 MG TAB PO SCH (08:13)
[2016-11-13] MEDS: SODIUM CHLORIDE 0.9% FLUSH 5 ML FLUSH FLUSH SCH (08:13)
--- NOTE | 2016-11-13 08:44 | HHI.NPPN ---
Subjective General Problems: Anemia Renal Failure: Chronic, End Stage Renal Disease Interval History Had dialysis yesterday. Wanting to be discharged. (Michelle Aldrich) Review of Systems Respiratory Respiratory Remarks Shortness of breath improved (Michelle Aldrich) Objective Data Data 11/12/16 11/13/16 19:00 07:00 Output Total 4000 ml Balance -4000 ml Output Hemodialysis 4000 ml Vital Signs Date Time Temp Pulse Resp B/P Pulse Ox O2 Delivery O2 Flow Rate FiO2 11/13/16 07:58 96 Nasal Cannula 3.00 11/13/16 07:49 98.2 62 18 200/95 95 11/13/16 05:22 Nasal Cannula 3.00 11/13/16 05:19 98.2 68 20 142/62 93 11/13/16 00:11 98.5 52 20 144/68 93 11/12/16 21:13 98.6 52 20 183/93 94 11/12/16 20:12 93 Nasal Cannula 4.00 11/12/16 19:30 18 11/12/16 17:42 98.3 53 18 171/81 95 11/12/16 12:14 98.6 64 16 195/93 11/12/16 10:59 96 Nasal Cannula 3.00 (Michelle Aldrich) -: 11/13/16 0541 11/13/16 0541 Imaging Last 72 hours Impressions Chest X-Ray 11/11/16 2308 Signed Impressions: Service Date/Time: Friday, November 11, 2016 23:32 - CONCLUSION: Bibasilar opacities greater in the right lower lobe. Cj Leavitt MD (Michelle Aldrich) Physical Exam General Appearance: Well Developed, Well Nourished, No Acute Distress (Michelle Aldrich) Throat Throat Exam: Oral Mucosa [place] & Moist (Michelle Aldrich) Pulmonary Resp Exam: Clear Bilaterally, Breath Sounds Equal (Michelle Aldrich) Cardiology CV Exam: Regular, Normal Sinus Rhythm, Good Perfusion (Michelle Aldrich) Gastrointestinal/Abdomen GI Exam: Soft, Non-Tender, Bowel Sounds Present (Michelle Aldrich) Musculoskeletal MS Exam: Joints Intact, Normal Gait (Michelle Aldrich) Integumentary Skin Exam: Clear, Warm, Dry, Intact (Michelle Aldrich) Extremeties Extremities Exam: No Edema, Pedal Pulses Palpable (Michelle Aldrich) Neurologic Neuro Exam: Alert, Awake, Oriented, Speech Clear, Moving All Extremities ( Michelle Aldrich) Psychiatric Psych Exam: Appropriate Responses (Michelle Aldrich) Assessment/Plan Discussed Condition With: Patient Assessment Summary: Anemia of CKD, End Stage Renal Disease Problem List: (1) End stage renal disease on dialysis Plan: dialysis schedule, he had dialysis yesterday, 4L UF K has improved fluid volume status stable he will be dialyzed today, then he can be discharged to resume outpatient arrangements. he has AVF for access (2) SOB (shortness of breath) Plan: pulmonary has evaluated, he has appointment to follow up outpatient (3) DM (diabetes mellitus) Plan: blood glucose stable insulin as needed (4) Anemia Plan: Epogen with dialysis (5) HTN (hypertension) Plan: blood pressure had improved initially, has not been given medications yet today monitor blood pressure with dialysis (Michelle Aldrich) Plan patient was seen and examined. He may have a new dry weight. Dialysis today. Seen during dialysis. Antihypertensives changed. 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
[2016-11-13] MEDS ORDERED: FERROUS SULFATE 325 MG (65 MG ELEMENTAL IRON) TAB PO SCH (09:00)
[2016-11-13] MEDS ORDERED: amLODIPine BESYLATE 5 MG TAB PO SCH (09:00)
[2016-11-13] MEDS ORDERED: PANTOPRAZOLE SOD 40 MG DELAYED RELEASE TAB PO SCH (09:00)
[2016-11-13] MEDS ORDERED: DOXAZOSIN MESYLATE 4 MG TAB PO SCH (09:00)
--- NOTE | 2016-11-13 09:16 | HHI.PR ---
Subjective Remarks sitting up in bed no sob no cp "I"m ready to go" "I feel great" on oxygen at 2L/NC explained that we need wean off oxygen or check whether he will need oxygen at home to plan discharge later today "I don't have an oxygen issue, I needed fluid removed" afebrile (Jolene Cruz) Objective Objective Results - Vital Signs Date Time Temp Pulse Resp B/P Pulse Ox O2 Delivery O2 Flow Rate FiO2 11/13/16 07:58 96 Nasal Cannula 3.00 11/13/16 07:49 98.2 62 18 200/95 95 11/13/16 05:22 Nasal Cannula 3.00 11/13/16 05:19 98.2 68 20 142/62 93 11/13/16 00:11 98.5 52 20 144/68 93 11/12/16 21:13 98.6 52 20 183/93 94 11/12/16 20:12 93 Nasal Cannula 4.00 11/12/16 19:30 18 11/12/16 17:42 98.3 53 18 171/81 95 11/12/16 12:14 98.6 64 16 195/93 11/12/16 10:59 96 Nasal Cannula 3.00 I/O 11/12/16 11/12/16 11/12/16 11/13/16 11/13/16 11/13/16 07:00 15:00 23:00 07:00 15:00 23:00 Output Total 4000 ml Balance -4000 ml Output Hemodialysis 4000 ml (Jolene Cruz) Result Diagram: 11/13/16 0541 11/13/16 0541 Imaging Last Impressions Chest X-Ray 11/11/16 0582 Signed Impressions: Service Date/Time: Friday, November 11, 2016 23:32 - CONCLUSION: Bibasilar opacities greater in the right lower lobe. Cj Leavitt MD Other Results Laboratory Tests Test 11/13/16 05:41 White Blood Count 4.1 Red Blood Count 3.22 Hemoglobin 9.4 Hematocrit 27.7 Mean Corpuscular Volume 86.0 Mean Corpuscular Hemoglobin 29.3 Mean Corpuscular Hemoglobin 34.0 Concent Red Cell Distribution Width 17.4 Platelet Count 217 Mean Platelet Volume 8.0 Neutrophils (%) (Auto) 73.8 Lymphocytes (%) (Auto) 10.9 Monocytes (%) (Auto) 13.1 Eosinophils (%) (Auto) 1.0 Basophils (%) (Auto) 1.2 Neutrophils # (Auto) 3.1 Lymphocytes # (Auto) 0.4 Monocytes # (Auto) 0.5 Eosinophils # (Auto) 0.0 Basophils # (Auto) 0.1 CBC Comment DIFF FINAL Differential Comment Sodium Level 140 Potassium Level 4.9 Chloride Level 102 Carbon Dioxide Level 30.2 Anion Gap 8 Blood Urea Nitrogen 47 Creatinine 10.23 Estimat Glomerular Filtration 6 Rate Random Glucose 100 Calcium Level 9.3 Iron Level 38 Total Iron Binding Capacity 182 Percent Iron Saturation 20.9 (Jolene Cruz) ROS General: Other (12 point ROS completed, unreliable ) (Jolene Cruz) Physical Exam Physical Exam GENERAL: This is a well-nourished, well-developed patient, in no apparent distress. SKIN: No rashes, ecchymoses or lesions. Cool and dry. HEAD: Atraumatic. Normocephalic. No temporal or scalp tenderness. EYES: Pupils equal round and reactive. Extraocular motions intact. No scleral icterus. No injection or drainage. ENT: Nose without bleeding, purulent drainage or septal hematoma. Throat without erythema, tonsillar hypertrophy or exudate. Uvula midline. Airway patent. NECK: Trachea midline. No JVD or lymphadenopathy. Supple, nontender, no meningeal signs. CARDIOVASCULAR: Regular rate and rhythm without murmurs, gallops, or rubs. Bilateral lower extremities without clubbing, no cyanosis, no edema. Pedal pulses +1 bilateral. Left arm with AV fistula, positive bruit and thrill. RESPIRATORY: breath sounds diminished at bases, faint rales at bases, no wheezing. GASTROINTESTINAL: Abdomen soft, non-tender, nondistended. No hepato-splenomegaly , or palpable masses. No guarding. MUSCULOSKELETAL: Extremities without clubbing, cyanosis, or edema. No joint tenderness, effusion, or edema noted. No calf tenderness. Negative Homans sign bilaterally. NEUROLOGICAL: Awake, alert oriented 2. No focal deficits. Poor historian. ( Jolene Cruz) Urinary Catheter: No (Jolene Cruz) Vascular Central Line Catheter: No (Jolene Cruz) A/P Diagnosis: (1) Hypoxia (2) Fluid overload (3) COPD with exacerbation (4) Hyperkalemia (5) Uncontrolled hypertension (6) ESRD on dialysis (7) HTN (hypertension) (8) DM (diabetes mellitus) (9) History of GI bleed (10) Anemia Assessment and Plan 71-year-old male with past medical history end-stage renal disease on HD, hypertension, COPD, presented to emergency room with shortness of breath. Patient was SOB, hypoxic, blood pressure was uncontrolled, chest x-ray with findings of bibasilar opacities greater in the right lower lobe. Patient admitted for pulmonary edema with uncontrolled HTN, COPD exacerbation. -Continue with supplemental oxygen to keep sats greater than 92 DuoNeb's 4 times a day and when necessary Pulmonology input appreciated continue empiric abx -overall improved, will check sats on RA. May need oxygen at home. Uncontrolled hypertension -Continue hydralazine 10 mg IV push every 4 when necessary -Nephrology has adjusted antihypertensive agents -follow up on BP still elevated this morning End-stage renal disease, noted hyperkalemic Nephrology input appreciated Continue with hemodialysis per schedule-due for tx today -Monitor electrolytes -Continuous cardiac telemetry Anemia, recently admitted for GI bleed requiring packed PRBCs Monitor H&H Avoid anticoagulation -Protonix 40 mg by mouth daily SCDs for DVT prophylaxis Protonix for GI prophylaxis CM for discharge planning, may need oxygen, will f/u on sat report. If < 90%, will need walk test Possible discharge this afternoon, BP needs to be better controlled D/W RN D/W pt D/W Dr. Shankar This patient was seen by myself and Dr. 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
--- NOTE | 2016-11-13 09:16 | HHI.FF ---
Face to Face Verification Diagnosis: (1) Fluid overload Home Health Nursing Order: Medical education CHF education I have seen patient Travon Canela on 11/13/16. My clinical findings support the need for the requested home health care services because: Patient has SOB Need for psychosocial assistance I certify that my clinical findings support that this patient is homebound because: Hx COPD- exertion dyspnea/weakness Poor cardiac reserve Jolene Cruz Nov 13, 2016 09:16
[2016-11-13] MEDS ORDERED: SYMB160A INH (09:33)
[2016-11-13] MEDS ORDERED: CARV12.5 PO (09:33)
[2016-11-13] MEDS ORDERED: AMLO5 PO (09:33)
[2016-11-13] MEDS ORDERED: COZA25TA PO (09:33)
--- NOTE | 2016-11-13 09:34 | HHI.DCPOC ---
Discharge Care Plan Diagnosis: (1) COPD with exacerbation (2) Hypoxia (3) ESRD on dialysis (4) Uncontrolled hypertension (5) Hyperkalemia Your Health Problems Are: Chest Pain Fluid/Lung Overload Shortness of Breath Goals to Promote Your Health * To prevent worsening of your condition and complications * To maintain your health at the optimal level Directions to Meet Your Goals Take your medications as prescribed Follow your dietary instruction Follow activity as directed Keep your appointments as scheduled Take your immunizations and boosters as scheduled If your symptoms worsen call your PCP, if no PCP go to Urgent Care Center or Emergency Room Smoking is Dangerous to Your Health. Avoid second hand smoke Call the 24-hour hour crisis hotline for domestic abuse at Jolene Cruz Nov 13, 2016 09:34
[2016-11-13 12:45] VITALS: BP 141/66; PULSE 70; RESP 18; TEMP 97.9; O2SAT 95
[2016-11-13] MEDS ORDERED: OXYGENTANK NAS.CANULA (14:32)
[2016-11-13 16:31] VITALS: BP 112/66; PULSE 69; RESP 18; TEMP 98.1; O2SAT 92
--- NOTE | 2016-11-13 18:53 | HHI.PR ---
Subjective Remarks Feels much better. Had dialysis. Off O2 sat 92 Objective Vital Signs Date Time Temp Pulse Resp B/P Pulse Ox O2 Delivery O2 Flow Rate FiO2 11/13/16 16:31 98.1 69 18 112/66 92 11/13/16 14:39 2.00 11/13/16 12:45 97.9 70 18 141/66 95 11/13/16 07:58 96 Nasal Cannula 3.00 11/13/16 07:49 98.2 62 18 200/95 95 11/13/16 05:22 Nasal Cannula 3.00 11/13/16 05:19 98.2 68 20 142/62 93 11/13/16 00:11 98.5 52 20 144/68 93 11/12/16 21:13 98.6 52 20 183/93 94 11/12/16 20:12 93 Nasal Cannula 4.00 11/12/16 19:30 18 I/O 11/12/16 11/12/16 11/12/16 11/13/16 11/13/16 11/13/16 07:00 15:00 23:00 07:00 15:00 23:00 Output Total 4000 ml 3000 ml Balance -4000 ml -3000 ml Output Hemodialysis 4000 ml 3000 ml # Bowel Movements 1 Result Diagram: 11/13/1641 11/13/16 0541 Objective Remarks General: This is a thinly built elderly man who is alert and pale, mildly dyspneic at rest. HEENT: Head normocephalic. Pupils reactive and equal. Tongue is moist. Throat is mildly injected. Nasal mucosa edematous. Chest: Equal movements with decreased excursions. Diminished breath sounds at the bases with occasional wheezes bilaterally and occ crackles heard at the lung bases. Heart: The heart sounds are irregular, S1 and S2. No murmur, no S3. Abdomen: Soft, benign. No masses or organomegaly or tenderness. Bowel sounds active. Extremities: No edema. Peripheral pulses are diminished. There is an A-V fistula in the left forearm. Neuro: Reflexes are 1+. No gross motor deficits. Cranial nerves grossly intact. Rectal: Exam is deferred. Skin: No lesions. Assessment and Plan Assessment and Plan IMPRESSION 1. COPD with chronic bronchitis and emphysema. 2. Pulmonary edema with hypoxemia. 3. Hypertension, uncontrolled. 4. End-stage renal disease on hemodialysis. 5. Diabetes mellitus type 2. 6. History of GI bleed with severe anemia. Plan : 1. Wean o2 to keep sat >92.Arrange home O2 if sat <88. 2. Nebs qiellis , arnulfob. 3. CPAP at HS. 4. Get BMP CBC. 5. Home per Allen Chery MD Nov 13, 2016 18:53
== END 2016-11-13 18:52 | disposition home or self-care (01) | DRG 640 ==
LOC: NEPE 22:45 → NEDA 11-12 00:47 → INTOOBSV 11-12 00:47 → NEDH 11-12 04:49 → OBSVTOIN 11-12 14:30 → NEPHCDU 11-12 15:36
PROVIDERS: ADMIT Specialist; ATTEND Specialist
PROC: 3E0F7GC Introduction of Other Therapeutic Substance into Respiratory Tract, Via Natural or Artificial Opening (ICD-10-PCS; principal; 2016-11-12)
PROC: 5A1D60Z (ICD-10-PCS; 2016-11-12)
DX: E87.70 Fluid overload, unspecified (principal); N18.6 End stage renal disease; I12.0 Hypertensive chronic kidney disease with stage 5 chronic kidney disease or end stage renal disease; E11.22 Type 2 diabetes mellitus with diabetic chronic kidney disease; J44.1 Chronic obstructive pulmonary disease with (acute) exacerbation; I50.9 Heart failure, unspecified; Z99.2 Dependence on renal dialysis; R09.02 Hypoxemia; J45.909 Unspecified asthma, uncomplicated; E78.00 Pure hypercholesterolemia, unspecified; K29.70 Gastritis, unspecified, without bleeding; E87.5 Hyperkalemia; D63.1 Anemia in chronic kidney disease; Z87.891 Personal history of nicotine dependence; K59.00 Constipation, unspecified; K57.90 Diverticulosis of intestine, part unspecified, without perforation or abscess without bleeding; K29.60 Other gastritis without bleeding; F41.9 Anxiety disorder, unspecified; G47.33 Obstructive sleep apnea (adult) (pediatric); Z99.81 Dependence on supplemental oxygen
CPT/HCPCS: 71010; 80048; 80069; 82550; 82552; 83540; 83550; 84484; 85025; 85610; 85730; 90935; 93005; 94620; 94664; J0360; J1644; J1956